=== PATIENT | male | born 1940 | race Caucasian/White ===

== ENCOUNTER 2024-12-05 12:29 | Outpatient (OUT) | payer MEDICARE, SELFPAY ==
--- OUTSIDE RECORDS SUMMARY | 2024-12-03 05:34 | XMS_ITS | Continuity of Care Document ---
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 Office Manager Name Role Phone Amadeo Landis MD Primary Care Provider [phone] Amadeo Landis MD Attending Provider Jalil Harding DO Attending Provider Joseph Graham MD Attending Provider Joseph Graham MD Other Provider [phone] Jeremy Marley APRN Attending Provider Care Teams Patient Care Team Team Status: Active Member Role Status Donna Landis MD Primary Care Provider Active Visit Care Team Team Status: Inactive Member Role Status Donna Landis MD Primary Care Provider Active Start: September 16, 2024 End: September 16, 2024 Amadeo Landis MD Attending Provider Active Start: September 16, 2024 End: September 16, 2024 Visit Care Team Team Status: Inactive Member Role Status Donna Landis MD Primary Care Provider Active Start: September 23, 2024 End: September 23, 2024 Jalil Harding DO Attending Provider Active St art: September 23, 2024 End: September 23, 2024 Visit Care Team Team Status: Active Member Role Status Donna Landis MD Primary Care Provider Active Start: October 07, 2024 Joseph Graham MD Attending Provider Active S tart: October 07, 2024 Joseph Graham MD Other Provider Active Start : October 07, 2024 Visit Care Team Team Status: Inactive Member Role Status Donna Landis MD Primary Care Provider Active Start: October 09, 2024 End: October 09, 2024 Amadeo Landis MD Attending Provider Active Start: October 09, 2024 End: October 09, 2024 Visit Care Team Team Status: Inactive Member Role Status Donna Landis MD Primary Care Provider Active Start: October 24, 2024 End: October 24, 2024 Jeremy Marley APRN Attending Provider Active Start: October 24, 2024 End: October 24, 2024 Visit Care Team Team Status: Inactive Member Role Status Donna Landis MD Primary Care Provider Active Start: October 28, 2024 End: October 28, 2024 Jalil Harding , Attending Provider Active St art: October 28, 2024 End: October 28, 2024 Visit Care Team Team Status: Inactive Member Role Status Donna Landis MD Primary Care Provider Active Start: October 28, 2024 End: October 28, 2024 Jalil Harding , Attending Provider Active St art: October 28, 2024 End: October 28, 2024 Visit Care Team Team Status: Inactive Member Role Status Donna Landis MD Primary Care Provider Active Start: November 07, 2024 End: November 07, 2024 Jalil Harding DO Attending Provider Active St art: November 07, 2024 End: November 07, 2024 Visit Care Team Team Status: Inactive Member Role Status Donna Landis MD Primary Care Provider Active Start: November 13, 2024 End: November 13, 2024 Jalil Harding DO Attending Provider Active St art: November 13, 2024 End: November 13, 2024 Visit Care Team Team Status: Inactive Member Role Status Donna Landis MD Primary Care Provider Active Start: November 18, 2024 End: November 18, 2024 Jalil Harding DO Attending Provider Active St art: November 18, 2024 End: November 18, 2024 Visit Care Team Team Status: Inactive Member Role Status Donna Landis MD Primary Care Provider Active Start: November 18, 2024 End: November 18, 2024 Jalil Harding DO Attending Provider Active St art: November 18, 2024 End: November 18, 2024 Patient Care Team Team Status: Inactive Member Role Status Donna Landis MD Primary Care Provider Active Start: December 03, 2024 End: December 03, 2024 Jeremy Marley APRN Attending Provider Active Start: December 03, 2024 End: December 03, 2024 [...] 2024 1:25 pm Encounter for subsequent [facility] wellness visit (AWV) in Medicare patient September [...] 2024 9:14am GERD (gastroesophageal reflux disease) S epmber 2024 2:08pm Primary osteoarthritis, right shoulder S eptember 2024 9:29am Right rotator cuff tear October 28 9:29am Status post reverse arthroplasty of shou lder October 28, 2024 9:29am Acromial fracture November 18, 2024 9:11am Primary osteoarthritis, right shoulder S eptember 2024 9:11am Right rotator cuff tear Dennise 29th, 2025 9:11am Status post reverse arthroplasty of adrián lder November 18, 2024 9:11am GERD (gastroesophageal reflux disease) O ctober 2024 9:14am Allergies, Adverse Reactions, Alerts Allergen Type Severity Reaction Last Updated Verified Status Penicillins Allergy Unknown Hives December 03, 2024 9:17am Axel s Active Social History Smoking Status Status Start Date End Date Date of Observa tion Ex-smoker (finding) September 202024 11:50am Observation Status Observation Response Date of Response Legal Sex Male (finding) Sex Assigned At Male 1940 Family History Relationship Condition Age at Onset Recorded Date/T channing father Unknown Cerebrovascular accident (CVA) Unknown brother Heart disease Unknown son Malignant neoplasm of colon Unknown mother Unknown Problems Active Problems Medical Problem Onset Date Status Comments History of tobacco abuse Unknown Active Right carpal tunnel syndrome Unknown Active Encounter for subsequent [facility] wellness visit (AWV) in Medicare patient Unknown Active Trigger finger, right ring finger Unknown Active Primary osteoarthritis, right shoulder Unknown Ac tive Left carpal tunnel syndrome Unknown Active BRANDON on CPAP Unknown Active Impaired mobility and activities of daily living Unkno wn Active Acromial fracture Unknown Active Right rotator cuff tear Unknown Active Shortness of breath Unknown Active Dysphasia Unknown Active Cyst Unknown Active Dry skin Unknown Active Acute bronchitis and bronchiolitis Unknown Active Dyslipidemia Unknown Active Insomnia, psychophysiological Unknown Active Neuropathy of right ulnar nerve at wrist Unknown Active Depression Unknown Active Status post reverse arthroplasty of shoulder Unknown Active Abnormal chest x-ray Unknown Active Infection of prosthetic left knee joint Unknown A ctive Hydrocele in adult Unknown Active Bilateral hand pain Unknown Active Pleural plaque due to asbestos exposure Unknown A ctive Impingement of right shoulder Unknown Active Cyst of testis Unknown Active BMI 36.0-36.9,adult Unknown Active Right shoulder pain Unknown Active Ganglion cyst of volar aspect of right wrist Unknown Active Right wrist pain Unknown Active Hydrocele, left Unknown Active GERD (gastroesophageal reflux disease) Unknown Ac tive History of asbestos exposure Unknown Active HTN (hypertension) Unknown Active Obesity Unknown Active 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 Unknown Active Excessive daytime sleepiness Unknown Active Inactive/Resolved Problems Medical Problem Onset Date Status Comments Postoperative pain of extremity Unknown Resolved Cubital tunnel syndrome on right Unknown Resolved Carpal tunnel syndrome Unknown Resolved with surgery on right 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 Unknown Resolved Left leg pain Unknown Resolved Postoperative pain Unknown Resolved S/P right colectomy Unknown Resolved Medications Medication Status Dose Units Route Directions Qty Days St art Date Stop Date End Date Instructions Adherence Furosemide 20 mg tablet Discont inued 20 MG PO Every morning 90 90 Decemb er 2023 5:51pm Sepus t 2024 8:55a m Oxycodone 5 mg tablet Discont inued 5 MG PO Q6H as needed for Pain 28 7 July 30, 2024 September 16, 2024 1:42p m DO NOT RECONCILE UNTIL DOS 07/31/24 TO BE USED POST OP Docusate Sodium (Colace) 100 mg capsule Discont inued 100 MG PO Twice daily as needed for Constipatio n 20 10 July 30, 2024 12:00a m 2024 8:55a m DO NOT RECONCILE UNTIL DOS 07/31/24 TO BE USED POST OP Acetaminoph en 500 mg tablet Discont inued 500 MG PO Q6H as needed for Pain July 30, 2024 12:00a m 2024 8:55a m DO NOT RECONCILE UNTIL DOS 07/31/24 TO BE USED POST OP Polyethylen e Glycol 3350 (Miralax) 17 gram powder in packet Discont inued 17 GM PO daily 14 14 July 30, 2024 12:00a m 2024 8:56a m 1 packet mixed with 8 ounces of fluid. DO NOT RECONCILE UNTIL DOS 07/31/24 TO BE USED POST OP Meloxicam 15 mg tablet Discont inued 15 MG PO daily 14 14 July 30, 2024 12:00a m 2024 8:56a m DO NOT RECONCILE UNTIL DOS 07/31/24 TO BE USED POST OP Doxycycline Hyclate 100 mg capsule Discont inued 100 MG PO Twice daily 70 35 July 30, 2024 12:00a m August 12, 2024 9:27a m DO NOT RECONCILE UNTIL DOS 07/31/24 TO BE USED POST OP Atorvastati n 40 mg Tablet Discont inued 20 MG PO Daily at bedtime 2020 1:00am Febru hany2022 10:17 am Sertraline 100 mg Tablet Discont inued 100 MG PO Daily at bedtime 2020 1:00am 2022 10:17 am Amlodipine 10 mg Tablet Discont inued 10 MG PO Every morning 2020 1:00am 2022 10:17 am Naproxen Sodium (Aleve) 220 mg Tablet Discont inued 440 MG PO Every morning as needed for Pain 2020 1:00am 2022 2:57p m Omeprazole 20 mg Tablet,Ana Lilia yed Release (Dr/Ec) Discont inued 20 MG PO Every morning 2020 1:00am 2022 10:17 am Multivitami n-Iron-Foli c Acid (Sentry) 18-400 mg-mcg Tablet Discont inued 1 TAB PO Every morning 2020 1:00am 2022 10:17 am Vancomycin - Pharmacy Dosing Discont inued 1 EACH IV Once as needed for pharmacy dosing 2022 4:42pm 2022 10:17 am Atorvastati n 20 mg Tablet Discont inued 20 MG PO Daily at bedtime 30 30 2022 1:00am July 12, 2022 11:09 am Melatonin 3 mg Tablet Discont inued 3 MG PO Daily at bedtime as needed for Insomnia 100 30 2022 1:00am August 08, 2022 10:12 am Acetaminoph en 500 mg Tablet Discont inued 1000 MG PO Every 8 hours 180 30 2022 1:00am June 14, 2022 3:42p m Amlodipine 10 mg Tablet Discont inued 10 MG PO Every morning 30 30 2022 1:00am June 14, 2022 3:42p m Omeprazole 20 mg Capsule,Del ayed Release(Dr/ Ec) Discont inued 20 MG PO Daily 30 30 2022 1:00am June 14, 2022 3:42p m Oxycodone 5 mg Tablet Discont inued 5 MG PO Every 4 hours as needed for Pain Scale 6 - 10 21 7 2022August 08, 2022 10:12 am Calcium Carbonate-V itamin D3 (Oyster Shell Calcium-Vit D3) 500 mg-5 mcg (200 unit) Tablet Discont inued 1 TAB PO Twice daily 60 30 2022 1:00am July 12, 2022 11:07 am Multivitami n With Folic Acid (Thera) 400 mcg Tablet Discont inued 1 TAB PO Daily 30 30 2022 1:00am July 27, 2022 4:08p m Fluconazole 100 mg Tablet Discont inued 100 MG PO Every morning 5 5 2022 1:00am June 14, 2022 3:39p m Sennosides- Docusate Sodium 8.6-50 mg Tablet Discont inued 2 TAB PO Daily 60 30 2022 1:00am June 14, 2022 3:42p m Sertraline 100 mg Tablet Discont inued 100 MG PO Daily at bedtime 30 30 2022 1:00am June 14, 2022 3:42p m Diphenhydra mine Hcl 25 mg Capsule Discont inued 25 MG PO Q8H as needed for Itching 90 30 2022 1:00am July 12, 2022 11:09 am Carbamide Peroxide (Ear Drops (Carbamide Peroxide)) 6.5 % Drops Discont inued 5 DROPS EAR-EFFIE TH Daily 1 30 2022 1:00am June 14, 2022 3:42p m Nystatin (Nystop) 100,000 unit/gram Powder Discont inued 1 APPLIC TOPICA L Three times daily 1 14 2022 1:00am June 14, 2022 3:40p m Hydroxyzine Pamoate 25 mg Capsule Discont inued 25 MG PO Q6H as needed for itching/spa sms 60 30 2022 1:00am August 08, 2022 10:12 am Sodium Chloride 0.9 % (Flush) (Bd Posiflush Normal Saline 0.9) Syringe Discont inued 10 ML IV-PUS H Every shift 0 2022 1:00am June 14, 2022 3:41p m Heparin, Porcine (Pf) (Heparin Lockflush(P orcine)(Pf) ) 100 unit/mL Syringe Discont inued 500 UNIT IV-PUS H Every shift 0 2022 1:00am June 14, 2022 3:39p m Vancomycin - Pharmacy Dosing Discont inued 1 ea IV PRN as needed 0 2022 1:00am June 14, 2022 3:42p m Vancomycin 1,000 mg Recon Soln Discont inued 1 GM IV Q12H 0 2022 1:00am June 14, 2022 3:42p m Rivaroxaban (Xarelto) 10 mg tablet Discont inued 10 MG PO Daily 35 35 2022 1:00am June 14, 2022 3:41p m Sennosides- Docusate Sodium 8.6-50 mg tablet Discont inued 2 TAB PO Daily as needed for Constipatio n June 14, 2022 3:41pm July 12, 2022 11:07 am Sertraline 100 mg tablet Discont inued 100 MG PO Daily at bedtime June 14, 2022 3:41pm August 08, 2022 10:12 am Acetaminoph en 500 mg tablet Discont inued 1000 MG PO Every 8 hours June 14, 2022 3:41pm August 08, 2022 10:12 am Amlodipine 10 mg tablet Discont inued 10 MG PO Every morning June 14, 2022 3:41pm August 08, 2022 10:12 am Carbamide Peroxide (Ear Drops (Carbamide Peroxide)) 6.5 % drops Discont inued 5 DROPS EAR-EFFIE TH Daily as needed for Ear Wax June 14, 2022 3:41pm July 12, 2022 11:08 am Omeprazole 20 mg capsule,del ayed release(DR/ EC) Discont inued 20 MG PO Every morning June 14, 2022 3:41pm August 08, 2022 10:12 am Ascorbic Acid (Vitamin C) (Vitamin C) 500 mg Tablet Discont inued 500 MG PO Twice daily with meals July 12, 2022 12:00a m August 08, 2022 10:12 am Ferrous Sulfate (Iron) 325 mg (65 mg iron) Tablet Discont inued 325 MG PO Every morning July 12, 2022 12:00a m August 08, 2022 10:12 am Atorvastati n 20 mg tablet Discont inued 40 MG PO Daily at bedtime July 12, 2022 11:07a m August 08, 2022 10:12 am Prednisone 10 mg Tablet Discont inued 10 MG PO Daily July 27, 2022 12:00a m July 27, 2022 4:08p m Polyethylen e Glycol 3350 (Healthylax ) 17 gram Powder In Packet Discont inued 17 GM PO Daily as needed for Constipatio n July 27, 2022 12:00a m August 08, 2022 10:12 am Sennosides- Docusate Sodium 8.6-50 mg Tablet Discont inued 2 TAB PO Daily July 27, 2022 12:00a m July 27, 2022 4:08p m Tramadol 50 mg Tablet Discont inued 50 MG PO Q4H as needed for Pain Scale 1 - 5 July 27, 2022 12:00a m July 27, 2022 4:09p m Ondansetron 4 mg Tablet,Disi ntegrating Discont inued 8 MG PO Three times daily as needed for Nausea July 27, 2022 12:00a m August 08, 2022 10:12 am Doxycycline Hyclate 100 mg Tablet Discont inued 100 MG PO Twice daily July 27, 2022 12:00a m August 08, 2022 10:12 am Rivaroxaban (Xarelto) 10 mg Tablet Discont inued 10 MG PO Daily July 27, 2022 12:00a m July 27, 2022 4:08p m Prednisone 10 mg tablet Discont inued 10 MG PO Every morning July 27, 2022 4:08pm August 08, 2022 10:12 am Sennosides- Docusate Sodium 8.6-50 mg tablet Discont inued 2 TAB PO Every morning July 27, 2022 4:08pm August 08, 2022 10:12 am Rivaroxaban (Xarelto) 10 mg tablet Discont inued 10 MG PO Every morning July 27, 2022 4:08pm August 05, 2022 2:29p m Multivitami n With Folic Acid (Thera) 400 mcg tablet Discont inued 1 TAB PO Every morning July 27, 2022 4:08pm August 08, 2022 10:12 am Rivaroxaban (Xarelto) 10 mg tablet Discont inued 10 MG PO Every morning 14 14 August 05 2023 2:29pm Octob er 2022 11:45 am Atorvastati n 40 mg Tablet Active 40 MG PO Daily at bedtime August 08, 2022 12:00a m Complies with drug therapy Melatonin 3 mg Tablet Discont inued 3 MG PO Daily at bedtime as needed for Insomnia 30 August 08, 2022 12:00a m June 25, 2024 11:45 am Amlodipine 5 mg Tablet Discont inued 5 MG PO Every morning August 08, 2022 12:00a m Octob er 2022 11:44 am Ascorbic Acid (Vitamin C) (Vitamin C) 500 mg Tablet Discont inued 500 MG PO Twice daily with meals 60 August 08, 2022 12:00a m Octob er 2022 11:44 am Pantoprazol e 40 mg Tablet,Ana Lilia yed Release (Dr/Ec) Discont inued 40 MG PO Every morning August 08, 2022 12:00a m Octob er 2022 11:45 am Oxycodone 5 mg Tablet Discont inued 5 MG PO Q8H as needed for Pain Scale 6 - 10 20 7 August 08, 2022 Octob er 2022 11:43 am Ferrous Sulfate 324 mg (65 mg iron) Tablet,Ana Lilia yed Release (Dr/Ec) Discont inued 324 MG PO Every morning August 08, 2022 12:00a m June 25, 2024 11:45 am Multivitami n With Folic Acid (Thera) 400 mcg Tablet Discont inued 1 TAB PO Every morning August 08, 2022 12:00a m Brayden thony 2023 3:06p m Sennosides- Docusate Sodium 8.6-50 mg Tablet Discont inued 2 TAB PO Every morning 60 August 08, 2022 12:00a m Octob er 2022 11:45 am Sertraline 100 mg Tablet Active 100 MG PO Daily at bedtime August 08, 2022 12:00a m Complies with drug therapy Acetaminoph en 500 mg Tablet Discont inued 500 MG PO Q4H as needed for Pain 180 August 08, 2022 12:00a m Octob er 2022 11:44 am Hydroxyzine Pamoate 25 mg Capsule Discont inued 25 MG PO Q6H as needed for Spasms 30 7 August 08, 2022 12:00a m Octob er 2022 11:45 am Naproxen Sodium (Aleve) 220 mg Tablet Discont inued 440 MG PO Twice daily as needed for Pain Octobe r 2022 12:00a m May 17, 2023 2:19p m Amlodipine 5 mg tablet Discont inued 5 MG PO Every morning Octobe r 2022 11:43a m July 07, 2023 9:33a m Acetaminoph en 500 mg tablet Discont inued 1000 MG PO Q6H as needed for Pain [facility] 11:43a m Septe [facility] 2023 3:03p m Ascorbic Acid (Vitamin C) (Vitamin C) 500 mg tablet [facility]cont inued [facility] 11:43[facility] m July 17, 2024 9:16a m Omeprazole 20 mg Tablet,Ana Lilia yed Release (Dr/Ec) Discont inued 20 MG PO Every morning [facility] 2022 12:00a m Septe [facility] 2024 2:25p m Sennosides- Docusate Sodium 8.6-50 mg tablet Discont inued 2 TAB PO Every morning as needed for Constipatio n [facility] 2022 11:45a m Septe [facility] 2023 3:08p m Hydrocodone -Acetaminop hen 5-325 mg tablet Discont inued 1 - 2 TAB PO EVERY 4-6 HOURS as needed for pain 30 4 [facility] 2022May 17, 2023 2:19p m Doxycycline Hyclate 100 mg tablet Discont inued 100 MG PO Twice daily 10 [facility] 12:[facility] m May 17, 2023 2:19p m Amlodipine 5 mg tablet Active 5 MG PO Every morning July 07, 2023 9:32am Complies with drug therapy Omeprazole 20 mg tablet,ana lilia yed release (DR/EC) Discont inued 20 MG PO Twice daily [facility]24 2:24pm Septe [facility] 2024 2:56p m Naproxen Sodium (Aleve) 220 mg tablet Active 440 MG PO Every morning Novemb er 2023 1:00am Complies with drug therapy Docusate Sodium (Stool Softener) 50 mg capsule Discont inued 50 MG PO Daily at bedtime Novemb er 2023 1:00am June 25, 2024 11:45 am Lactobacill us Combination No.9 (Adult 50 Plus Probiotic) 4 billion cell capsule Active 4000 MMU CELLS PO Every morning Novemb er 2023 1:00am administer with a meal Complies with drug therapy Hydrocodone -Acetaminop hen 5-325 mg tablet Discont inued 1 - 2 TAB PO EVERY 4-6 HOURS as needed for pain 20 3 Novemb er 2023June 25, 2024 11:45 am Doxycycline Hyclate 100 mg tablet Discont inued 100 MG PO Twice daily 10 5 Novemb er 2023 1:00am Novem lorena 2023 12:01 pm Polyethylen e Glycol 3350 (Clearlax) 17 gram/dose powder Active 17 GM PO Daily as needed for constipatio n September 23, 2024 12:00a m Complies with drug therapy Melatonin 3 mg Tablet Discont inued 3 MG PO Daily at bedtime as needed for Insomnia 2022 1:00am Febru 2022 10:17 am Vancomycin 750 mg Recon Soln Discont inued 0.75 GM IV Q12H 2022 1:00am 2022 10:17 am Vancomycin - Pharmacy Dosing Discont inued 1 ea IV Once as needed 2022 1:00am 2022 4:42p m Polyethylen e Glycol 3350 (Miralax) 17 gram Powder In Packet Discont inued 17 GM PO Daily as needed for Constipatio n 2022 1:00am Febru hany2022 10:17 am Sennosides- Docusate Sodium 8.6-50 mg Tablet Discont inued 2 TAB PO Daily 2022 1:00am Febru hany2022 10:17 am Tramadol 50 mg Tablet Discont inued 50 MG PO Q4H as needed for Pain Scale 1 - 5 2022 1:00am Febru 2022 10:17 am Acetaminoph en 500 mg Tablet Discont inued 1000 MG PO Q8H 2022 1:00am Febru 2022 10:17 am Ondansetron 4 mg Tablet,Disi ntegrating Discont inued 8 MG PO Three times daily as needed for Nausea 2022 1:00am Febru 2022 10:17 am Oxycodone 5 mg Tablet Discont inued 5 MG PO Every 4 hours as needed for Pain Scale 6 - 10 2022 10:17 am Calcium Carbonate-V itamin D3 (Oyster Shell Calcium-Vit D3) 500 mg-5 mcg (200 unit) Tablet Discont inued 1 TAB PO Twice daily 2022 1:00am Febr2022 10:17 am Rivaroxaban (Xarelto) 10 mg Tablet Discont inued 10 MG PO Daily 2022 1:00am u 2022 10:17 am Acetaminoph en (Non-Aspiri n) 325 mg tablet Discont inued 650 MG PO Every 6 hours as needed for fever or pain 2023 12:00a m June 25, 2024 11:24 am Naproxen (Naprosyn) 500 mg tablet Discont inued 500 MG PO Daily as needed for pain 2023 12:00a m 2023 11:18 am Tamsulosin 0.4 mg capsule Discont inued 0.4 MG PO Every morning 2023 12:00a m June 25, 2024 11:24 am Aspirin (Aspirin Childrens) 81 mg tablet,chew able Discont inued 81 MG PO Daily at bedtime 2023 12:00a m Febr 2024 10:43 am Diclofenac Sodium (Voltaren Arthritis Pain) 1 % gel Discont inued 0 TOPICA L Twice daily as needed for arthritis 2023 12:00a m Novem 2023 11:18 am topically twice daily PRN; Nitroglycer in 0.4 mg tablet, sublingual Active 0.4 MG SUBLIN GUAL Q5M as needed for chest pain 2023 12:00a m until response; do not exceed 3 doses per event Complies with drug therapy Tamsulosin 0.4 mg capsule Active 0.4 MG PO Twice daily June 25, 2024 11:22a m Complies with drug therapy Hydroxyzine Pamoate 25 mg capsule Discont inued MG PO June 09, 2023 12:00a m [facility]2023 3:06p m FreeTextSi capsule at bedtime as needed Orally prn; Note: Source Status: Taking; Provider: Irma Sequeira ( ) Prednisone 5 mg tablet Discont inued 5 MG PO daily 30 May 17, 2023 12:00a m Augus t 2023 8:19a m Take 5 pills by mouth x2 days, take 4 pills by mouth x2 days, take 3 pills by mouth x2 days, take 2 pills by mouth x2 days, take 1 pill by mouth x2 days. Diclofenac Sodium (Voltaren Arthritis Pain) 1 % gel Discont inued 0 TOPICA L Twice daily May 17, 2023 12:[address] [facility] 2023 3:09p m apply 1-2 grams to affected area twice daily Multivitami n-Minerals- Lutein tablet Active 1 TAB PO Daily July 07, 2023 12:00a m Complies with drug therapy Doxycycline Hyclate 100 mg capsule Discont inued 100 MG PO Twice daily er 2023 1:00am Febru 2024 10:43 am Cpap (Continuous Positive Airway Pressure) unit Discont inued 0 .Route 2024 1:00am u 2024 10:46 am As directed Cpap (Continuous Positive Airway Pressure) unit Active 0 .Route 2024 10:46a m As directed [facility]ME [facility] Ferrous Sulfate 325 mg (65 mg iron) tablet Discont inued 325 MG PO Daily 2024 12:00a m Octob er 2024 9:18a m Furosemide 20 mg tablet Discont inued 20 MG PO Daily 2024 12:00a m Octob er 2024 9:18a m Dutasteride 0.5 mg capsule Active 0.5 MG PO Daily 2024 12:00a m Complies with drug therapy Famotidine 40 mg tablet Active 40 MG PO Daily at bedtime as needed for heartburn/a bd pain 2024 12:00a m Complies with drug therapy Omeprazole 40 mg capsule,del ayed release(DR/ EC) Active 40 MG PO Daily 2024 12:00a m Complies with drug therapy Doxycycline Hyclate 100 mg capsule Discont inued MG PO October 20, 2023 12:00a m Septe mber 2023 3:05p m Furosemide 20 mg tablet Discont inued 20 MG PO Every morning October 20, 2023 12:00a m Dece lorena 2023 5:52p m Acetaminoph en (Tylenol Extra Strength) 500 mg tablet Active 500 MG PO Every 6 hours as needed for pain June 25, 2024 12:00a m Complies with drug therapy Aspirin (Adult Low Dose Aspirin) 81 mg tablet,ana lilia yed release (DR/EC) Discont inued 81 MG PO Daily June 25, 2024 12:00a m July 02, 2024 8:36a m Oxycodone 5 mg tablet Discont inued 5 MG PO Every 8 hours as needed June 25, 2024 12:00a m July 02, 2024 8:40a m Ciprofloxac in Hcl 500 mg tablet Discont inued MG PO 2024 12:00a m Octob er 2024 9:18a m Prednisone 5 mg tablet Discont inued 5 MG PO daily 2024 12:00a m Octob er 2024 9:19a m Take 4 pills by mouth x2 days, take 3 pills by mouth x2 days, take 2 pills by mouth x2 days, take 1 pill by mouth x1 day. IV Medications Medication Contents Directions Start Date Gentamicin 455 mg Gentamicin, Sodium Chloride 0.9% 100 ml [0.9% Sodium Chloride 100 ml] 222.75 mls/hr IV Q36H March 10, 2022 1:00am Immunizations Immunization Event Date Not Given Reason Dose Number Prior Authorization Technician Lot Number Vaccine Information Statement (VIS) Detail Administration Location COVID-19 mRNA, Comirnatjose d (infibond) May 15, 2020 COVID-19 mRNA, Comirnaty (infibond) June 19, 2020 COVID-19 ([employer]) 12Y and older March 16, 2023 COVID-19 ([employer]) 12Y and older April 23, 2024 Fluzone TIV High-Dose 65YR+ December 01, 2019 Fluzone TIV High-Dose 65YR+ January 12, 2021 Fluzone TIV High-Dose 65YR+ December 13, 2021 Fluzone TIV High-Dose 65YR+ April 23, 2024 influenza, unspecified formulation January 12, 2021 influenza, unspecified formulation December 13, 2021 Pneumococcal Conjugate Vaccine, 13 valent November 12, 2014 Pneumonia Vaccine, Unspecified December 04, 2003 Pneumococcal Polysacc. Vaccine, 23 valent February 20, 2017 Pneumococcal Polysacc. Vaccine, 23 valent April 07, 2017 Quadrivalent Influenza November 17, 2022 Tetanus, Diphtheria, Pertussis (Tdap) February 26, 2019 Medical Equipment Device Date Implanted Date Explanted Device Deta ils Orthopaedic bone screw, non-bioabsorbable, non-sterile July 31, 2024 JOEL: ()[id number] Issuing Agency: [facility] Device Id: [id number] Orthopaedic bone screw, non-bioabsorbable, non-sterile July 31, 2024 JOEL: ()[id number] Issuing Agency: [facility] Device Id: [id number] Orthopaedic bone screw, non-bioabsorbable, non-sterile July 31, 2024 JOEL: ()[id number] Issuing Agency: [facility] Device Id: [id number] Orthopaedic bone screw, non-bioabsorbable, non-sterile July 31, 2024 JOEL: ()[id number] Issuing Agency: [facility] Device Id: [id number] Polyethylene reverse shoulder prosthesis cup July 31, 2024 JOEL: ()[id number] Issuing Agency: [facility] Device Id: [id number] Expiration Date: 2027-07-15 Serial Number: [id number] Coated shoulder humeral stem prosthesis July 31, 2024 JOEL: ()[id number] Issuing Agency: [facility] Device Id: [id number] Expiration Date: 2028-06-18 Serial Number: [id number] Reverse shoulder prosthesis head July 31, 2024 JOEL: ()[id number] Issuing Agency: [facility] Device Id: [id number] Expiration Date: 2027-12-13 Orthopaedic bone screw, non-bioabsorbable, non-sterile July 31, 2024 JOEL: ()[id number] Issuing Agency: [facility] Device Id: [id number] Reverse shoulder prosthesis base plate July 31, 2024 JOEL: ()[id number] Issuing Agency: [facility] Device Id: [id number] Expiration Date: 2029-04-16 Serial Number: [id number] Nerve guide, bioabsorbable, animal-derived December 05, 2022 JOEL: [id number] Orthopaedic cement, non-medicated March 08, 2022 JOEL: ()[id number] Issuing Agency: [facility] Device Id: [id number] Expiration Date: 2024-06-19 Lot Number: [id number] Orthopaedic cement, non-medicated March 08, 2022 JOEL: ()[id number] [id number])[id number] Issuing Agency: [facility] Device Id: [id number] Expiration Date: 2024-06-19 Lot Number: [id number] Orthopaedic cement, non-medicated March 08, 2022 JOEL: ()[id number] Issuing Agency: [facility] Device Id: [id number] Expiration Date: 2024-06-19 Lot Number: [id number] Orthopaedic cement, non-medicated March 08, 2022 JOEL: ()[id number] [id number])[id number] Issuing Agency: [facility] Device Id: [id number] Expiration Date: 2024-06-19 Lot Number: [id number] Orthopaedic cement, non-medicated July 26, 2022 JOEL: ()[id number])[id number] 30(10)[id number] Issuing Agency: [facility] Device Id: [id number] Expiration Date: 2024-11-19 Lot Number: [id number] Orthopaedic cement, non-medicated July 26, 2022 JOEL: ()[id number] [id number])[id number] Issuing Agency: [facility] Device Id: [id number] Expiration Date: 2024-11-19 Lot Number: [id number] Orthopaedic cement, non-medicated July 26, 2022 JOEL: ()[id number] 30(10)[id number] Issuing Agency: [facility] Device Id: [id number] Expiration Date: 2024-11-19 Lot Number: [id number] Knee femur stem prosthesis July 26, 2022 JOEL: ()[id number] Issuing Agency: [facility] Device Id: [id number] Expiration Date: 2028-11-19 Lot Number: [id number] Knee femur stem prosthesis July 26, 2022 JOEL: ()[id number] Issuing Agency: [facility] Device Id: [id number] Expiration Date: 2028-11-19 Lot Number: [id number] Tibial insert July 26, 2022 JOEL: ()[id number])[id number] Issuing Agency: [facility] Device Id: [id number] Expiration Date: 2024-07-20 Lot Number: [id number] Knee arthroplasty wedge July 26, 2022 UD I: ()[id number] Issuing Agency: [facility] Device Id: [id number] Expiration Date: 2029-08-19 Lot Number: [id number] Knee arthroplasty wedge July 26, 2022 UD I: ()[id number] Issuing Agency: [facility] Device Id: [id number] Expiration Date: 2029-10-06 Lot Number: [id number] Knee arthroplasty wedge July 26, 2022 UD I: ()[id number])[id number] Issuing Agency: [facility] Device Id: [id number] Expiration Date: 2029-03-22 Lot Number: [id number] Knee arthroplasty wedge July 26, 2022 UD I: ()[id number] Issuing Agency: [facility] Device Id: [id number] Expiration Date: 2029-03-22 Lot Number: [id number] Knee arthroplasty wedge July 26, 2022 UD I: ()[id number] Issuing Agency: [facility] Device Id: [id number] Expiration Date: 2030-07-10 Lot Number: [id number] Knee arthroplasty wedge July 26, 2022 UD I: ()[id number] Issuing Agency: [facility] Device Id: [id number] Expiration Date: 2030-09-20 Lot Number: [id number] Knee arthroplasty wedge July 26, 2022 UD I: ()[id number])[id number] Issuing Agency: [facility] Device Id: [id number] Expiration Date: 2030-05-28 Lot Number: [id number] Knee arthroplasty wedge July 26, 2022 UD I: ()[id number] Issuing Agency: [facility] Device Id: [id number] Expiration Date: 2030-01-02 Lot Number: [id number] Uncoated knee femur prosthesis, metallic July 26, 2022 JOEL: ()[id number])[id number] Issuing Agency: [facility] Device Id: [id number] Expiration Date: 2030-04-26 Lot Number: [id number] Uncoated knee tibia prosthesis, metallic July 26, 2022 JOEL: ()[id number] Issuing Agency: [facility] Device Id: [id number] Expiration Date: 2031-08-03 Lot Number: [id number] Tendon/ligament bone anchor, non-bioabsorbable July 26, 2022 JOEL: ()[id number] Issuing Agency: [facility] Device Id: [id number] Expiration Date: 2025-10-20 Lot Number: [id number] Tendon/ligament bone anchor, non-bioabsorbable July 26, 2022 JOEL: ()[id number] [id number] Issuing Agency: [facility] Device Id: [id number] Expiration Date: 2026-11-19 Lot Number: [id number] Uncoated knee femur prosthesis March 08, 2022 July 26, 2022 JOEL: ()[id number] Issuing Agency: [facility] Device Id: [id number] Expiration Date: 2030-05-17 Lot Number: [id number] Tibial insert March 08, 2022 July 26, 2022 JOEL: ()[id number] [id number])[id number] Issuing Agency: [facility] Device Id: [id number] Expiration Date: 2024-07-20 Lot Number: [id number] Procedures Procedure Date Performed Status XR shoulder [...] 1:23pm November 07, 2024 3:54pm 7.6 10*3/uL 4.1-10.5 [facility] [id number] [address] [facility] [address] Uncorrect ed WBC Count November 07, 2024 1:23pm November 07, 2024 3:54pm 7.6 10*3/uL 4.1-10.5 [facility] [id number] [address] [facility] [address] Red Blood Count November 07, 2024 1:23pm November 07, 2024 3:54pm 5.10 10*6/uL 3.90-5.60 [facility] [id number] [address] [facility] [address] Hemoglobi n November 07, 2024 1:23pm November 07, 2024 3:54pm 15.1 g/dL 13.0-17.0 [facility] [id number] [address] [facility] [address] Hematocri t November 07, 2024 1:23pm November 07, 2024 3:54pm 46.3 % 38.8-50.0 [facility] [id number] [address] [facility] [address] Mean Corpuscul ar Volume November 07, 2024 1:23pm November 07, 2024 3:54pm 90.8 fL 83.5-101 [facility] [id number] [address] [place] [id number] Mean Corpuscul ar Hemoglobi n November 07, 2024 1:23pm November 07, 2024 3:54pm 29.6 pg 27.5-35.2 [facility] [id number] [address] [facility] [address] Mean Corpuscul ar Hemoglobi n Concent November 07, 2024 1:23pm November 07, 2024 3:54pm 32.6 g/dL 32.5-35.6 [facility] [id number] [address] [facility] [address] Red Cell Distribut ion Width November 07, 2024 1:23pm November 07, 2024 3:54pm 15.3 % Above high normal 12.0-14.8 [facility] [id number] [address] [facility] [address] Platelet Count November 07, 2024 1:23pm November 07, 2024 3:54pm 179 10*3/uL 150-450 [facility] [id number] [address] [facility] [address] Mean Platelet Volume November 07, 2024 1:23pm November 07, 2024 3:54pm 8.0 fL 6.6-10.1 [facility] [id number] [address] [facility] [address] Neutrophi ls (%) (Auto) November 07, 2024 1:23pm November 07, 2024 3:54pm 50.5 % . [facility] [id number] [address] [facility] [address] Lymphocyt es (%) (Auto) November 07, 2024 1:23pm November 07, 2024 3:54pm 38.7 % . [facility] [id number] [address] [facility] [address] Monocytes (%) (Auto) November 07, 2024 1:23pm November 07, 2024 3:54pm 9.1 % . [facility] [id number] [address] [facility] [address] Eosinophi ls (%) (Auto) November 07, 2024 1:23pm November 07, 2024 3:54pm 1.2 % . [facility] [id number] [address] [facility] [address] Basophils (%) (Auto) November 07, 2024 1:23pm November 07, 2024 3:54pm 0.5 % . [facility] [id number] [address] [facility] [address] Nucleated RBC Relative Count (auto) November 07, 2024 1:23pm November 07, 2024 3:54pm 0.0 /100{WB C} 0-0.5 [facility] [id number] [address] [facility] [address] Neutrophi ls # (Auto) November 07, 2024 1:23pm November 07, 2024 3:54pm 3.9 10*3/uL 1.8-7.7 [facility] [id number] [address] [place] 1772970 Lymphocyt es # (Auto) November 07, 2024 1:23pm November 07, 2024 3:54pm 3.0 10*3/uL 1.00-4.8 [facility] [id number] [address] [facility] [address] Monocytes # (Auto) November 07, 2024 1:23pm November 07, 2024 3:54pm 0.7 10*3/uL 0.0-0.8 [facility] [id number] [address] [place] 1772970 Eosinophi ls # (Auto) November 07, 2024 1:23pm November 07, 2024 3:54pm 0.1 10*3/uL 0.0-0.45 [facility] [id number] [address] [place] 1772970 Basophils # (Auto) November 07, 2024 1:23pm November 07, 2024 3:54pm 0.0 10*3/uL 0.0-0.2 [facility] [id number] [address] [facility] [address] Erythrocy te Sedimenta tion Rate November 07, 2024 1:23pm November 07, 2024 4:26pm 6 mm/hr 0-19 [facility] [id number] [address] [place], [place] [address] D-Dimer Quantitat michoacano (PE/DVT) November 07, 2024 1:23pm November 07, 2024 4:17pm 690 ng/mL Above high normal 0-243 The reference range for D-dimer is <243 ng/mL D-dimer units.D-dime r results must be used in conjunction with a clinicalpret est probability (PTP) assessment model for deep veinthrombos is (DVT) and pulmonary embolism (PE). Results <230ng/mL d-dimer units can be used as a negative predictor inpatients with low or moderate probability for DVT/PE.Resul ts above the exclusion threshold of 230 ng/ml D-dimerunits for DVT/PE may indicate the need for furtherdiagn ostic testing.D-Di juan daniel can be increased in hospitalized patients due toco-morbid conditions.A hematocrit value greater than 55% may lead to inaccurate results in coagulation testing. Patients having hematocrit values >55% require a special collection tube for coagulation studies. Please contact the laboratory at [phone] for redraw instructions . [facility] [id number] [address] [place] [address] C-Reactiv e Protein, Quantitat michoacano November 07, 2024 1:23pm November 07, 2024 4:05pm 0.5 mg/dL 0.0-0.5 [facility] [id number] [address] [place], [place] [address] Diagnostic Imaging Reports Author Dae Frankel [facility] Authored October 09, 2024 3: 12pm Report Dictated Date/Time Dictated By Status Radiology Report October 09, 2024 3:12pm Dae Frankel II MD completed [facility] [place] [address] Ultrasound Report Signed Patient: Danyel Jung V MR#: [id number] : 1940 Acct:[id number] Age/Sex: 84 / M ADM Date: 5 Loc: Room: Type: [facility] Attending Dr: Amadeo Landis MD Ordering [...] Frankel M.D. 10/09/2024 3:20 PM Dictation Location: [place] [address] Tech: Gayle Nino Transcribed By: [facility] 10/09/24 1520 Dictated By: Dae Frankel II, MD 10/09/24 1512 Signed By: <Electronically signed by Dae Frankel II, MD in OV> 10/09/24 1520 Author Amarjit Ngael [facility] Authored October 28, 2024 1:55pm Report Dictated Date/Time Dictated By Status Radiology Report October 28, 2024 1:55pm Patel Nagel Jr DO completed [facility] [address] [place] [address] XRay Report Signed Patient: Danyel Jung V MR#: [id number] : 1940 Acct:[id number] Age/Sex: 84 / M ADM Date: 5 [place] [facility] [place]: Type: [facility] Attending Dr: Jalil Harding DO Copies to: [...] Impression dictated by: Amarjit Nagel Jr., D.O. 10/28/2024 1:56 PM Dictation Location: [place] [address] Transcribed By: [facility] 10/28/24 1356 Dictated By: Amarjit Nagel Jr, DO 10/28/24 1355 Signed By: <Electronically signed by Amarjit Nagel Jr, DO in OV> 10/28/24 1356 Author Amarjit Nagel [facility] Authored November 18, 2024 4:18pm Report Dictated Date/Time Dictated By Status Radiology Report November 18, 2024 4:18pm Amarjit Nagel Jr DO completed [facility] [address] [place] [address] XRay Report Signed Patient: Danyel Jung V MR#: [id number] : 1940 Acct:[id number] Age/Sex: 84 / M ADM Date: 5 Loc: [facility] Room: Type: [facility] Attending Dr: Jalil Harding DO Copies to: [...] Impression dictated by: Amarjit Nagel Jr., D.OSamanta 11/18/2024 4:19 PM Dictation Location: [place] [address] Transcribed By: [facility] 11/18/24 1619 Dictated By: Amarjit Nagel Jr, DO 11/18/24 1618 Signed By: <Electronically signed by Amarjit Nagel Jr, DO in OV> 11/18/24 1619 Vital Signs Vital Reading Result Reference Range Collection Date/Time Weight 119.74 kg September 16, 2024 1:41pm BP Systolic 134 mm[Hg] 100-140 September 16, 2024 1:41pm BP Diastolic 70 mm[Hg] 60-100 September 16, 2024 1:41pm Height 71 [in_i] October 07 11:50am Weight 115.66 kg October 07 11:50am Heart Rate 60 /min 60-100 October 07 12:44pm Respiratory rate 16 /min 12-September 12:44pm Oxygen saturation by Pulse oximetry 97 % 95-100 October 07, 2024 12 :44pm BP Systolic 153 mm[Hg] 100-140 October 07 12:44pm BP Diastolic 81 mm[Hg] 60-100 October 07 12:44pm Height 71 [in_i] October 24, 2024 2:21pm Weight 117.93 kg October 24, 2024 2:21pm Heart Rate 76 /min 60-100 October 24, 2024 2:21pm BP Systolic 117 mm[Hg] 100-140 October 24, 2024 2:21pm BP Diastolic 66 mm[Hg] 60-100 October 24, 2024 2:21pm BMI (Body Mass Index) 36.2 kg/m2 2024 2:21pm Height 71 [in_i] December 03, 2 025 9:15am Weight 116.57 kg December 03, 2 025 9:15am Heart Rate 71 /min 60-100 December 03, 2 025 9:15am BP Systolic 137 mm[Hg] 100-140 December 03, 2 025 9:15am BP Diastolic 72 mm[Hg] 60-100 December 03, 2 025 9:15am BMI (Body Mass Index) 35.8 kg/m2 Octobe r 2024 9:15am Advance Directives Advance Directive Response Recorded Date/ Time Advance Directives Yes July 01 2:11pm Insurance Providers Guarantor Danyel Jung V Address [address] [facility] [place] [place] [address] Contact Info. Home Phone: Payer Policy Id Subscriber's Name Subscriber Id Effectiv e Date Expiration Date Medicare [id number] Danyel Pachasa V [id number] Medicare Rehab-IP Part A [id number] Danyel Pachasa V [id number] Encounters Encounter Location(s) Arrival/Admit Date Discharge/Depart Date Provider(s) [facility]arted Phys[facility]vi [facility] September 16, 2024 1:25pm September 16, 2024 2:09pm Amadeo Landis MD Departed Physician/Provi emily Office Visit -[facility] September 23, 2024 9:14am September 23, 2024 9:26am Jalil Harding DO Non-patient / Non-visit -[facility] October 07, 2024 11:36am Joseph Graham MD Departed Clinical -Ultrasound [facility] October 09, 2024 7:41am October 09, 2024 7:42am Amadeo Landis MD Departed Physician/Provi emily Office Visit -[facility] October 24, 2024 2:08pm October 24, 2024 2:57pm Jeremy Marley APRN Departed Physician/Provi emily Office Visit -[facility] October 28, 2024 9:29am October 28, 2024 10:53am Jalil Harding DO Departed Clinical -[facility] October 28, 2024 9:42am October 28, 2024 9:43am Jalil Harding DO Departed Clinical -[facility] November 07, 2024 1:22pm November 07, 2024 1:23pm Jalil Harding DO Discharged Recurring -[facility] November 13, 2024 9:00am November 13, 2024 5:00pm Jalil Harding DO Departed Physician/Provi emily Office Visit -[facility] November 18, 2024 9:11am November 18, 2024 10:05am Jalil Harding DO Departed Clinical -[facility] November 18, 2024 9:28am November 18, 2024 9:29am Jalil Harding DO Departed Physician/Provi emily Office Visit -[facility] December 03, 2024 9:14am December 03, 2024 9:33am Jeremy Marley APRN Recent Diagnosis Onset Date Admit Date Depression Unknown September 16, 2024 1:25pm Dysphasia Unknown September 16, 2024 1:25pm Encounter for subsequent [facility] wellness visit (AWV) in Medicare patient [...] 2024 9:29am Right rotator cuff tear [facility] 9:29am Status post reverse arthroplasty of shoulder Unk nown October 28, 2024 9:29am Acromial fracture Unknown October 9:11am Primary osteoarthritis, right shoulder Unknown November 18, 2024 9:11am [facility] Status post reverse arthroplasty of shoulder Unk nown November 18, 2024 9:11am GERD (gastroesophageal reflux disease) Unknown December 03, 2024 9:14am Assessments [facility] September 16, 2024 2:16 pm Patient was verbally informed of the use of an AI-based documentation tool during the encounter. Tool is approved by [facility] and configured for HIPAA-compliant use. No objections voiced. Plan of Treatment Author Amadeo Landis [facility] Authored October 02, 2024 5: 29pm Patient presents with signif icant symptoms including difficulty swallowing, choking on foods, [...] as tolerated post- surgery. Consider referral to completion engineer if patient is interested in dietary guidance. Patient acknowledges issues with weight and difficulty in managing diet. - Plan: Encourage gradual increase in physical activity as tolerated post- surgery. Consider referral to completion engineer if patient is interested in dietary guidance. [...] performed by Dr. Landis. Author Lena Montoya [facility] Authored November 18, 2024 10:03am Images were reviewed in [facility] with the patient and company. Orthopedic hardware [...] weeks with repeat xrays. Author Jeremy Marley [facility] Authored October 24, 2024 4:47pm - Order omeprazole 40 mg macy ly for treatment of GERD. Patient advised to use as needed Pepcid for breakthrough. 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 Anti-reflux precautions discussed: Loss weight Elevate head of bed 4-6 inches when sleeping Avoid eating within 3 hours before bedtime. Maintain upright posture during and after eating. Avoid clothing that is tight in the abdominal area. Minimize narcotics Avoid foods that make symptoms worse (examples include coffee, chocolate, alcohol, peppermint, and fatty foods) . Eat 5-6 small meals throughout the day instead of 2-3 large meals. Do not use tobacco products Minimize alcohol use Avoid lying down for 3 hours after [...] history of bulbar polio. Author Shellie Gaxiola [facility] Authored September 23, 2024 9:2 4am Instructed to continue with formal physical therapy and [...] myself Jalil Harding D.O. Author Jalil Harding [facility] Authored October 28, 2024 1:18pm Images were reviewed in [facility] with the patient. Advised he likely pushed [...] is unavailable Patient Instructions Instruction Admit Date [facility] Esophagitis Discha rge Instructions Know your Meds October 07, 2024 11:36am
--- OUTSIDE RECORDS SUMMARY | 2024-12-04 09:00 | XMS_ITS | Encounter Summary ---
Author Organization [facility] Address [address] [place] [address] Phone Care Team Providers Care Private Banker Name Role Phone Amadeo Landis MD Primary Care Provider [phone] [phone] Reason for Referral * Consultation (Routine) - Authorized Specialty Diagnoses / Procedures Referred By Jennifer t Referred To Contact Cardiology Diagnoses Essential hypertension Procedures Follow Up In Cardiology Hayder Patino DO 703 [facility] 2, [address] [address] Phone: tel: fax: Briana Pretty, TRACK EQUIPMENT OPERATOR-POOL LIFEGUARD 703 [facility] 2, [address] [address] Phone: tel: fax: Referral ID Status Reason Start Date Expiration Date V isits Requested Visits Authorized [id number] Authorized 12/04/2024 12/04/2025 1 1 Reason for Visit * Reason Comments Annual Exam 1 year, coronary art kenia disease * Consultation (Routine) - Authorized Specialty Diagnoses / Procedures Referred By Contac t Referred To Contact Cardiology Diagnoses Coronary artery disease involving kl[place] coronary artery 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[place] heart without angina pectoris Procedures Follow Up In Cardiology Hayder Patino DO [address] [place] [address] 2, [address] [address] Phone: tel: fax: Hayder Patino DO [address] [place] [address] 2, [address] [place] [address] Phone: tel: fax: Referral ID Status Reason Start Date Expiration Date V isits Requested Visits Authorized [id number] Authorized 11/28/2023 11/27/2024 1 1 Encounter Details Date Type Department Care Team (Late st Contact Info) Description 12/04/2024 9:00 AM EDT Office Visit [facility] [address] [phone] Hayder Patino, 703 [facility] 2, [facility] [address] [place] [address] Coronary artery disease involving kl[place] ka[place] coronary artery of [place] heart without angina pectoris; Essential hypertension; Mixed hyperlipidemia; MCCARTHY (dyspnea on exertion); BMI 36.0-36.9,adult; Former tobacco use Discharge Disposition: Home Social History Tobacco Use Types Packs/Day Years Used Date Smoking Tobacco: Former Pipe Smokeless Tobacco: Never Alcohol Use Standard Drinks/Week Comments Yes 0 (1 standard drink = 0.6 oz pur e alcohol) occasionally Sex and Gender Information Value Date Recorded Sex Assigned at Not on file Legal Sex Male 11:38 AM EST Gender Identity Not on file Sexual Orientation Not on file documented as of this encounter Last Filed Vital Signs Vital Sign Reading Time Taken Comments Blood Pressure 136/66 12/04/2024 9:17 AM EDT Pulse 62 12/04/2024 9:17 AM EDT Temperature - - Respiratory Rate - - Oxygen Saturation - - Inhaled Oxygen Concentration - - Weight 119 kg (263 lb) 12/04/2024 9:17 AM EDT Height 180.3 cm (5' 11 ) 12/04/2024 9:17 AM EDT Body Mass Index 36.68 12/04/2024 9:17 AM EDT documented in this encounter Functional Status * BP Answer Date of Assessment Author 136/66 12/04/2024 9:17 AM EDT Cheikh Tierney MA * Pulse Answer Date of Assessment Author 62 12/04/2024 9:17 AM EDT Cheikh Tierney MA * Communicable Disease Screening Question Answer Date of Assessment Author Do you have any of the following new or worsening symptoms? None of these 12/04/2024 9:07 AM EDT JayjayMaye documented as of this encounter Patient Instructions * Patient Instructions* Andreia Ambrose LPN - 12/04/2024 9:00 AM EDT Please bring all medicines, vitamins, and herbal supplements with you when you come to the office. Prescriptions will not be filled unless you are compliant with your follow up appointments or have a follow up appointment scheduled as per instruction of your physician. Refills should be requested at the time of your visit. BMI was above normal measurement. Current weight: 119 kg (263 lb) Weight change since last visit (-) denotes wt loss 13 lbs Weight loss needed to achieve BMI 25: 84.1 Lbs Weight loss needed to achieve BMI 30: 48.4 Lbs Provided instructions on dietary changes. * Attachments The following attachments cannot be sent through Care Everywhere. * Heart Healthy Diet (Mosotho) documented in this encounter Progress Notes * Hayder Patino DO - 12/04/2024 9:00 AM EDT Chief Complaint Patient presents with Annual Exam 1 year, coronary artery disease Subjective Danyel Jung is a 84 y.o. male 84-year-old gentleman returns for annual cardiovascular follow-up and doing well. He denies any angina or hospitalizations or acute coronary events, denies any heart failure or edema. He has minimal coronary disease by previous heart catheterization performed by myself due to abnormal stress testing. He has underlying hypertension hyperlipidemia. Over the past year his ambulatory capacity has declined a bit but he still walking at [facility] still doing physical therapy following right shoulder replacement Recommendations: Follow-up with primary care, nurse practitioner I will see him on a as needed basis Review of Systems Cardiovascular: Positive for dyspnea on exertion. All other systems reviewed and are negative. Vitals: 12/04/24 0917 BP: 136/66 BP Location: Left arm Patient Position: Sitting Pulse: 62 Weight: 119 kg (263 lb) Height: 1.803 m (5' 11 ) Objective Physical Exam Constitutional: Appearance: Normal appearance. HENT: Nose: Nose normal. Neck: Vascular: No carotid bruit. Cardiovascular: Rate and Rhythm: Normal rate. Pulses: Normal pulses. Heart sounds: Normal heart sounds. Pulmonary: Effort: Pulmonary effort is normal. Abdominal: General: Bowel sounds are normal. Palpations: Abdomen is soft. Musculoskeletal: General: Normal range of motion. Cervical back: Normal range of motion. Right lower leg: No edema. Left lower leg: No edema. Skin: General: Skin is warm and dry. Neurological: General: No focal deficit present. Mental Status: He is alert. Psychiatric: Mood and Affect: Mood normal. Behavior: Behavior normal. Thought Content: Thought content normal. Judgment: Judgment normal. Allergies Penicillins Current Medications Current Outpatient Medications Medication Instructions acetaminophen (TYLENOL) 1,000 mg, Daily amLODIPine (NORVASC) 5 mg, Daily atorvastatin (LIPITOR) 40 mg, Nightly dutasteride (AVODART) 0.5 mg, Daily furosemide (LASIX) 20 mg, oral, Daily melatonin 3 mg, Nightly multivit-min/ferrous fumarate (MULTI VITAMIN ORAL) 1 tablet, Daily naproxen (NAPROSYN) 500 mg, 2 times daily (morning and late afternoon) naproxen sodium (Aleve) 220 mg capsule 1 tablet, 2 times daily omeprazole (PriLOSEC) [address] capsule 1 capsule, Daily (0630) sertraline (ZOLOFT) 100 mg, Daily tamsulosin (Flomax) 0.4 mg 24 hr capsule 1 capsule, Nightly Vitamin C 500 mg, 2 times daily (morning and late afternoon) Assessment/Plan 1. Coronary artery disease involving kl[place] coronary artery of kl[place] ka[place] heart without angina pectorisFollow Up In Cardiology 2. Essential hypertension 3. Mixed hyperlipidemia 4. MCCARTHY (dyspnea on exertion) 5. BMI 36.0-36.9,adult 6. Former tobacco use Scribe Attestation By signing my name below, Andreia Rodas LPN, Scribnelson attest that this documentation has been prepared under the direction and in the presence of Benito Patino DO. Provider Attestation - Scribe documentation All medical record entries made by the Scribe were at my direction and personally dictated by me. Misha reviewed the chart and agree that the record accurately reflects my personal performance of the history, physical exam, discussion and plan. documented in this encounter Plan of Treatment Upcoming Encounters Date Type Department Care Team (Late st Contact Info) Description 12/15/2025 9:00 AM EDT Office Visit [facility] 703 [facility] [address] [place] [phone] Briana Pretty, TRACK EQUIPMENT OPERATOR-POOL LIFEGUARD 703 [facility] [address] [place] [address] documented as of this encounter Visit Diagnoses Diagnosis Coronary artery disease involving kl[place] ka[place] coronary artery of kl[place] ka[place] heart without angina pectoris Essential hypertension Unspecified essential hypertension Mixed hyperlipidemia MCCARTHY (dyspnea on exertion) Other dyspnea and respiratory abnormality BMI 36.0-36.9,adult Former tobacco use documented in this encounter Additional Health Concerns Assessment Noted Time A fall risk assessment has been complete d for the patient 12/04/2024 9:17 AM EDT documented as of this encounter Care Teams Private Banker Relationship Specialty Start Date End Date Amadeo Landis MD [address] [place] [address] PCP - General Internal Medicine 08/18/23 documented as of this encounter
--- OUTSIDE RECORDS SUMMARY | 2024-12-05 12:39 | XMS_ITS | Clinical Summary ---
Author Organization [facility] Address [address] [place], [place] [id number] Care Team Providers Care Internal Medicine Doctor Name Role Phone Amadeo Landis MD Primary Care Provide r Allergies Active Allergy Reactions Criticality Noted Date Comments Penicillins Hives 08/30/2010 Medications omeprazole 20 mg ORAL capsule Take 20 mg by mouth once daily. Active atorvastatin (LIPITOR) 40 mg tablet Take 40 mg by mouth once daily. Active amLODIPine (NORVASC) 5 mg tablet Take 5 mg by mouth once daily. Active NAPROXEN SODIUM (ALEVE ORAL) Take by mouth. Take 2 tablets every morning Active tiZANidine (ZANAFLEX) 4 mg tablet Take 1 tablet by mouth at bedtime as needed (muscle relaxation). 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 014 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 Senile cataract, unspecified 08/13/2010 Encounters Date Type Department Care Team Description 10/10/2024 Lab Requisition [facility] [address] [place] [address] Keith Farnsworth MD Person encountering health services to consult on behalf of another person from Last 3 Months Immunizations Immunization Administration Dates Next Due influenza vaccine, unspecified formulation 12/06 Family History Medical History Relation Comments Coronary Artery Disease Father Relation Status Comments Father Mother Social History Tobacco Use Types Packs/Day Years Used Date Smoking Tobacco: Never Alcohol Use Standard Drinks/Week Comments No 0 (1 standard drink = 0.6 oz pur e alcohol) Sex and Gender Information Value Date Recorded Sex Assigned at Not on file Legal Sex Male 10:12 AM EST Gender Identity Not on file Sexual Orientation Not on file Last Filed Vital Signs Vital Sign Reading Time Taken Comments Blood Pressure 155/72 10/19/2016 2:10 PM EDT Pulse 52 10/19/2016 2:10 PM EDT Temperature 36.4 C (97.5 F) 10/19/2016 12:56 PM EDT Respiratory Rate 18 10/19/2016 2:10 PM EDT Oxygen Saturation 98% 10/19/2016 2:10 PM EDT Inhaled Oxygen Concentration - - Weight 105.2 kg (232 lb) 09/19/2016 8:13 AM EDT Height 182.9 cm (6') 09/19/2016 8:13 AM EDT Body Mass Index 31.46 09/19/2016 8:13 AM EDT Plan of Treatment Health Maintenance Due Date Last Done Comments Anxiety Screening 08/30/1958 Depression Screening 08/30/1957 DTaP,Tdap,Td Vaccine (1 - Tdap) 08/30/1958 Diabetes Screening 08/30/1984 Pneumococcal Vaccine: 50+ (1 of 1 - PCV) 08/30/1989 Shingrix Vaccine (1 of 2) 08/30/1989 RSV Vaccine (1 - 1-dose 75+ series) 08/30/2014 Advance Directive Discussion 02/21/2024 Covid-19 Vaccine (1 - 2024- season) 2024 Influenza Vaccine (#1) 2024 12/07/2011 Medical Devices Implanted Type Area Compressor Station Operator Device Identifier Shelf Expiration Date Model / Serial / Lot Lens Iol +25.0 Karmen Acrsf Iq - [id number] Implanted:Qty : 1 on 09/06/2010 at [facility] Intraocular Lens Left: Eye - Lens [facility] 05/21/2015 [id number] 25.0 / [id number] / [id number] Lens Iol +25 Karmen +1.5 Cyl 1 - [id number] Implanted:Qty : 1 on 09/20/2010 at [facility] Intraocular Lens Right: Eye - Lens [employer] [facility] 10/20/2013 [id number] 25.0 / [id number] / Procedures Procedure Name Priority Date/Time Associated Diagnosis Comments SURGICAL PATHOLOGY REFERENCE LAB CONSULT Routine 10/10/2024 8:05 AM EDT Person encountering health services to consult on behalf of another person from Last 3 Months Results * SURGICAL PATHOLOGY REFERENCE LAB CONSULT (10/10/2024 8:05 AM EDT) Case Report Surgical Pathology Report Case: [id number] Authorizing Provider: Keith Farnsworth MD Collected: 10/10/2024 08:05 AM Ordering Location: [facility] Received: 10/10/2024 08:05 AM [facility] Pathologist: Gisselle Pettit MD Specimen: Block(s) and/or Slide(s), 4 SLIDES [id number] 10/11/2024 11:24 AM EDT [facility] FINAL DIAGNOSIS Esophagus, biopsy (A1): - Gastric type mucosa with intestinal metaplasia, negative for dysplasia. - See comment. 10/11/2024 11:24 AM EDT [facility] at 1124 EDT Diagnosis Comment Thank you for allowing us the opportunity to review this case in consultation representing the esophageal biopsy from this 84-year-old male patient. The current [place] [employer] guidelines require an endoscopic abnormality that extends at least 1 cm proximal to the gastroesophageal junction in addition to a histologic finding of intestinal metaplasia in order to establish a diagnosis of Razo s esophagus. Clinical and endoscopic correlation is suggested. There is no evidence of dysplasia in this biopsy. Thank you for sending this case in consultation. Please do not hesitate to contact us at [phone] with questions or if additional follow-up information becomes available. This case was reviewed in conjunction with the GI pathology fellow, Amita Espinal MD. 10/11/2024 11:24 AM EDT [facility] Clinical History CONSULT REQUSTED 10/11/2024 11:24 AM EDT [facility] Performing Lab Diagnostic interpretation performed at: [facility], [address] [place] [address], [place] [address] CLIA# [id number] Vp Integration: Jose Palencia MD 10/11/2024 11:24 AM EDT [facility] Disclaimer Laboratory Developed Test (LDT) Disclaimer: Performance characteristics of immunohistochemical , immunofluorescent, and chromogenic in-situ hybridization tests have been determined by the performing laboratory within [facility]'s [facility] Pathology and Laboratory Medicine Department ([facility], [facility], [facility], [facility], [facility], [facility], or [facility]) in a manner consistent with CLIA requirements. One or more of these tests may not have been cleared or approved by the FDA. [facility] is regulated under CLIA as qualified to perform high-complexity testing. These tests are used for clinical purposes. These should not be regarded as investigational or for research. Positive and negative controls stain appropriately. 10/11/2024 11:24 AM EDT [facility] Blocks or Slides PARAFFIN EMBEDDED TISSUE BLOCK SPECIMEN / Unknown 10/10/2024 8:05 AM EDT 10/10/2024 8:05 AM EDT us Keith Farnsworth MD SURGICAL PATHOLOGY Final Result [facility] [address] [place] [address], [place] from Last 3 Months Insurance [facility] MEDICARE Care Teams Internal Medicine Doctor Relationship Specialty Start Date End Date Amadeo Landis MD [address] [place] [phone] PCP - General 08/17/10
--- OUTSIDE RECORDS SUMMARY | 2024-12-05 12:39 | XMS_ITS | Encounter Summary ---
Author Organization [facility] Address [address] [place] [address] Phone Care Team Providers Care Research Interviewer Name Role Phone Amadeo Landis MD Primary Care Provider [phone] Encounter Details Date Type Department Care Team (Latest Contact Info) Description 12/04/2024 Travel Social History Tobacco Use Types Packs/Day Years [...] on file documented as of this encounter Functional Status * BP Answer Date of Assessment Author 136/66 12/04/2024 9:17 AM EDT Cheikh Tierney MA * Pulse Answer Date of Assessment Author 62 12/04/2024 9:17 AM EDT Cheikh Tierney MA * Communicable Disease Screening Question Answer Date of Assessment Author Do you have any of the following new or worsening symptoms? None of these 12/04/2024 9:07 AM EDT Maye Ro documented as of this encounter Plan of Treatment Upcoming Encounters Date Type Department Care Team (Late st Contact Info) Description 12/15/2025 9:00 AM EDT Office Visit [facility] 703 [facility] [address] [place] [address] Briana Pretty, SCREEN ROLLER-CLERICAL PROOFREADER [address] [facility] [address], [address] [place] [address] documented as of this encounter Visit Diagnoses Not on filedocumented in this encounter Additional Health Concerns Assessment Noted Time A fall risk assessment has been complete d for the patient 12/04/2024 9:17 AM EDT documented as of this encounter Care Teams Research Interviewer Relationship Specialty Start Date End Date Amadeo Landis MD [address] [place] [address] PCP - General Internal Medicine 08/18/23 documented as of this encounter
--- OUTSIDE RECORDS SUMMARY | 2024-12-05 12:39 | XMS_ITS | Encounter Summary ---
Author Organization [facility] Address [address] [place] [address] Phone Care Team Providers Care Business Development Sales Executive Name Role Phone Amadeo Landis MD Primary Care Provider [phone] Encounter Details Date Type Department Care Team (Late st Contact Info) Description 10/24/2023 Scanned Document [facility] [address] [place] [address] Scanning, Generic Provider Social History Tobacco Use Types Packs/Day Years Used Date Smoking Tobacco: Former Pipe Smokeless Tobacco: Never Alcohol Use Standard Drinks/Week Comments Yes 0 (1 standard drink = 0.6 oz pur e alcohol) occasionally Sex and Gender Information Value Date Recorded Sex Assigned at Not on file Legal Sex Male 11:38 AM EST Gender Identity Not on file Sexual Orientation Not on file COVID-19 Exposure Response Date Recorded In the last 10 days, have yo u been in contact with someone who was confirmed or suspected to have Coronavirus/COVID-19? No / Unsure 10/10/2023 11:23 AM EDT documented as of this encounter Plan of Treatment Upcoming Encounters Date Type Department Care Team (Late st Contact Info) Description 12/15/2025 9:00 AM EDT Office Visit [facility] [address] [facility] [address] [place] [address] Briana Pretty, COLLECTIONS TECHNICIAN-PHOTOCOPYING MACHINE OPERATOR [address] [facility] [address] [place], [place] [id number] documented as of this encounter Visit Diagnoses Not on filedocumented in this encounter Additional Health Concerns Assessment Noted Time A fall risk assessment has been complete d for the patient 08/18/2023 12:57 PM EDT documented as of this encounter Care Teams Business Development Sales Executive Relationship Specialty Start Date End Date Amadeo Landis MD [address] [place] [address] PCP - General Internal Medicine 08/18/23 documented as of this encounter
--- OUTSIDE RECORDS SUMMARY | 2024-12-05 12:39 | XMS_ITS | Encounter Summary ---
Author Organization [facility] Address [address] [place] [address] Phone Care Team Providers Care Sawmill Moulder Operator Name Role Phone Amadeo Landis MD Primary Care Provider [phone] Encounter Details Date Type Department Care Team (Late st Contact Info) Description 11/07/2024 Scanned Document [facility] [address] [place] [address] Scanning, Generic Provider Social History [...] on file documented as of this encounter Plan of Treatment Upcoming Encounters Date Type Department Care Team (Late st Contact Info) Description 12/15/2025 9:00 AM EDT Office Visit [facility] [address] [facility] [address] [place] [address] Briana Pretty, LEATHER STAMPER-MELTER LOADER [address] [facility] [address] [place] [address] documented as of this encounter Visit Diagnoses Not on filedocumented in this encounter Additional Health Concerns Assessment Noted Time A fall risk assessment has been complete d for the patient 08/18/2023 12:57 PM EDT documented as of this encounter Care Teams Sawmill Moulder Operator Relationship Specialty Start Date End Date Amadeo Landis MD [address] [place] [address] PCP - General Internal Medicine 08/18/23 documented as of this encounter
--- OUTSIDE RECORDS SUMMARY | 2024-12-05 12:39 | XMS_ITS | Encounter Summary ---
Author Organization [facility] Address [address] [place] [address] Phone Care Team Providers Care Regulatory Manager Name Role Phone Amadeo Landis MD Primary Care Provider [phone] Encounter Details Date Type Department Care Team (Late st Contact Info) Description 08/16/2023 Scanned Document [facility] [address] [place] [address] Scanning, Generic Provider Social History Tobacco Use Types Packs/Day Years Used Date Smoking Tobacco: Never Assessed Sex and Gender Information Value Date Recorded Sex Assigned at Not on file Legal Sex Male 11:38 AM EST Gender Identity Not on file Sexual Orientation Not on file COVID-19 Exposure Response Date Recorded In the last 10 days, have yo u been in contact with someone who was confirmed or suspected to have Coronavirus/COVID-19? No / Unsure 08/18/2023 12:24 PM EDT documented as of this encounter Functional Status * Question Answer Date of Assessment Author BP 130/62 08/18/2023 12:53 PM EDT Mary Khan CMA Pulse 60 08/18/2023 12:53 PM EDT Mary Khan CMA * Communicable Disease Screening Question Answer Date of Assessment Author Do you have any of the follo wing new or worsening symptoms? None of these 08/18/2023 12:24 PM EDT Gato Vela documented as of this encounter Plan of Treatment Upcoming Encounters Date Type Department Care Team (Late st Contact Info) Description 12/15/2025 9:00 AM EDT Office Visit [facility] [address] [facility] [address] [place] [address] Briana Pretty, FIRE PRODUCTION OPERATOR-SURGICAL PROCESSOR [address] [facility] [address], [facility] [address] [place] [address] documented as of this encounter Visit Diagnoses Not on filedocumented in this encounter Care Teams Regulatory Manager Relationship Specialty Start Date End Date Amadeo Landis MD [address] [place] [address] PCP - General Internal Medicine 08/18/23 documented as of this encounter
--- OUTSIDE RECORDS SUMMARY | 2024-12-05 12:39 | XMS_ITS | Clinical Summary ---
Author Organization [facility] Address [address] [place] [address] Phone Care Team Providers Care Salon Leader Name Role Phone Amadeo Landis MD Primary Care Provider [phone] Allergies Active Allergy Reactions Criticality Noted Date Comments Penicillins Hives 05/02/2010 Medications Vitamin C 500 mg tablet Take 1 tablet (500 mg) by mouth 2 times daily (morning and late afternoon). 3 Active melatonin 3 mg tablet 1 tablet (3 mg) once daily at bedtime. 3 Active sertraline (Zoloft) 100 mg tablet Take 1 tablet (100 mg) by mouth once daily. 3 Active atorvastatin (Lipitor) 40 mg tablet Take 1 tablet (40 mg) by mouth once daily at bedtime. 3 Active acetaminophen (Tylenol) 500 mg tablet 2 tablets (1,000 mg) once daily. 3 Active multivit-min/fe rrous fumarate (MULTI VITAMIN ORAL) Take 1 tablet by mouth once daily. Active naproxen sodium (Aleve) 220 mg capsule Take 1 tablet by mouth 2 times a day. Active furosemide (Lasix) 20 mg tabletIndicatio ns:Shortness of breath Take 1 tablet (20 mg) by mouth once daily. 90 tablet 3 4 Active tamsulosin (Flomax) 0.4 mg 24 hr capsule Take 1 capsule (0.4 mg) by mouth once daily at bedtime. 4 Active dutasteride (Avodart) 0.5 mg capsule Take 1 capsule (0.5 mg) by mouth once daily. 5 10/19/19 26 Active amLODIPine (Norvasc) 5 mg tablet Take 1 tablet (5 mg) by mouth once daily. Active naproxen (Naprosyn) 250 mg tablet Take 2 tablets (500 mg) by mouth 2 times daily (morning and late afternoon). Active omeprazole (PriLOSEC) [address] capsule Take 1 capsule (40 mg) by mouth early in the morning.. 5 Active ferrous sulfate 324 mg (65 mg elemental iron) EC tablet (delayed release) 1 tablet (65 mg) once daily. 3 12/05/19 Discontinu ed(Med List Cleanup) aspirin 81 mg EC tablet Take 1 tablet (81 mg) by mouth once daily. 12/05/19 Discontinu ed(Med List Cleanup) Active Problems Problem Noted Date Diagnosed Date Mixed hyperlipidemia 11/28/2023 CAD (coronary artery disease) 11/28/2023 Essential hypertension 11/28/2023 Former tobacco use 11/28/2023 Abnormal EKG 08/18/2023 MCCARTHY (dyspnea on exertion) 08/18/2023 BMI 36.0-36.9,adult 08/18/2023 Encounters Date Type Department Care Team Description 12/04/2024 9:00 AM EDT Office Visit [place] [address] [address] Hayder Patino, DO Coronary artery disease involving peoria coronary artery of peoria heart without angina pectoris; Essential hypertension; Mixed hyperlipidemia; MCCARTHY (dyspnea on exertion); BMI 36.0-36.9,adult; Former tobacco use Discharge Disposition: Home 12/04/2024 Travel 11/07/2024 Scanned Document [facility] [address] [place] [address] Scanning, Generic Provider from Last 3 Months Family History Medical History Relation Name Comments Congenital heart disease Brother Heart attack Father Cardiac Disorder Mother Relation Name Status Comments Brother Father Mother Social History Tobacco Use Types [...] Mass Index 36.68 12/04/2024 9:17 AM EDT Plan of Treatment Upcoming Encounters Date Type Department Care Team (Late st Contact Info) Description 12/15/2025 9:00 AM EDT Office Visit [facility] [address] [facility] [address] [place] [address] Briana Pretty, NEGATIVE STRIPPER-OBGYN NURSE [address] [facility] [address] [place] [address] Health Maintenance Due Date Last Done Comments Lipid Panel 1940 Medicare Annual Wellness Visit (AWV) 1940 RSV High Risk: (Elderly (60+) or Population) (1 - 1-dose 75+ series) 08/30/2014 Zoster Vaccines (2 of 3) 05/07/2015 03/12/2015 Influenza Vaccine (#1) 2024 , 11/17/2022, 12/13/2021, Additional history exists COVID-19 Vaccine (3 - 2024- season) 2024 04/23/2024, 03/16/2023 DTaP/Tdap/Td Vaccines (3 - Td or Tdap) 02/26/2029 02/26/2019, 09/20/2009 Pneumococcal Vaccine Completed 04/07/2017, 02/20/2017, 11/12/2014, Additional history exists Irritable Bowel Syndrome Discontinued 05/11/2021 HIB Vaccines Aged Out No longer eligi ble based on patient's age to complete this topic HPV Vaccines Aged Out No longer eligi ble based on patient's age to complete this topic Hepatitis A Vaccines Aged Out No long er eligible based on patient's age to complete this topic Hepatitis B Vaccines Aged Out No long er eligible based on patient's age to complete this topic IPV Vaccines Aged Out No longer eligi ble based on patient's age to complete this topic Meningococcal Vaccine Aged Out No alem lucille eligible based on patient's age to complete this topic Rotavirus Vaccines Aged Out No longer eligible based on patient's age to complete this topic Insurance MEDICARE PART A AND B [facility] Care Teams Salon Leader Relationship Specialty Start Date End Date Amadeo Landis MD [address] [place] [address] PCP - General Internal Medicine 08/18/23
--- OUTSIDE RECORDS SUMMARY | 2024-12-05 12:39 | XMS_ITS | Encounter Summary ---
Author Organization [facility] Address [address] [place] [address] Care Team Providers Care Sales And Marketing Director Name Role Phone Amadeo Landis MD Primary Care Provide r Source Comments In the event this information is protected by the Federal Confidentiality of Alcohol and Drug AbusePatient Records regulations: The Federal rules restrict any use of the information to criminally investigate or prosecute any alcohol or drug abuse patient.[facility] Encounter Details Date Type Department Care Team (Late st Contact Info) Description 10/10/2024 Lab Requisition [facility] [place] [address] Keith Farnsworth MD [address] [place] [address] Person encountering health services to consult on behalf of another person Social History Tobacco Use Types Packs/Day Years [...] as of this encounter Plan of Treatment Not on file documented as of this encounter Procedures Procedure Name Priority Date/Time Associated Diagnosis Comments SURGICAL PATHOLOGY REFERENCE LAB CONSULT Routine 10/10/2024 8:05 AM EDT Person encountering health services to consult on behalf of another person documented in this encounter Results * SURGICAL PATHOLOGY REFERENCE LAB CONSULT (10/10/2024 8:05 AM EDT) Case Report Surgical Pathology Report Case: [id number] Authorizing Provider: Keith Farnsworth MD Collected: 10/10/2024 08:05 AM Ordering Location: [facility] Received: 10/10/2024 08:05 AM [facility] Pathologist: Gisselle Pettit MD Specimen: Block(s) and/or Slide(s), 4 SLIDES [id number] 10/11/2024 11:24 AM EDT [facility] FINAL DIAGNOSIS Esophagus, biopsy (A1): - Gastric type mucosa with intestinal metaplasia, negative for dysplasia. - See comment. 10/11/2024 11:24 AM EDT [facility] at 1124 EDT Diagnosis Comment Thank you for allowing us the opportunity to review this case in consultation representing the esophageal biopsy from this 84-year-old male patient. The current [employer] guidelines require an endoscopic [...] do not hesitate to contact us at [phone] with questions or if additional follow-up information becomes available. This case was reviewed in conjunction with the GI pathology fellow, Amita Espinal MD. 10/11/2024 11:24 AM EDT [facility] Clinical History CONSULT REQUSTED 10/11/2024 11:24 AM EDT [facility] Performing Lab Diagnostic interpretation performed at: [facility], [address] [place] [address], [place] [address] CLIA# [id number] Teacher Cclc: Jose Palencia MD 10/11/2024 11:24 AM EDT [facility] Disclaimer Laboratory Developed Test (LDT) Disclaimer: Performance characteristics of immunohistochemical , immunofluorescent, and chromogenic in-situ hybridization tests have been determined by the performing laboratory within [facility] and Laboratory Medicine Department ([facility], [facility], [facility], [facility], [facility], [facility], or [facility]) in a manner consistent with CLIA requirements. One or more of these tests may not have been cleared or approved by the FDA. [facility] is regulated under CLIA as qualified to perform high-complexity testing. These tests are used for clinical purposes. These should not be regarded as investigational or for research. Positive and negative controls stain appropriately. 10/11/2024 11:24 AM EDT [facility] Blocks or Slides PARAFFIN EMBEDDED TISSUE BLOCK SPECIMEN / Unknown 10/10/2024 8:05 AM EDT 10/10/2024 8:05 AM EDT us Keith Farnsworth MD SURGICAL PATHOLOGY Final Result [facility] [address] [facility] [address] [address], documented in this encounter Visit Diagnoses Diagnosis Person encountering health services to consult on behalf of another person Other person consulting on behalf of another person documented in this encounter Care Teams Sales And Marketing Director Relationship Specialty Start Date End Date Amadeo Landis MD [address] [place] [phone] PCP - General 08/17/10 documented as of this encounter
--- OUTSIDE RECORDS SUMMARY | 2024-12-05 12:39 | XMS_ITS | Clinical Summary ---
Author Organization [facility] Address [address] [facility] [place] [address] Care Team Providers Care Boat Laborer Name Role Phone Unavailable Primary Care Provider Unavailabl e Social History Tobacco Use Types Packs/Day Years Used Date Smoking Tobacco: Never Assessed Sex and Gender Information Value Date Recorded Sex Assigned at Not on file Legal Sex Male 7:10 PM EDT Gender Identity Not on file Sexual Orientation Not on file Last Filed Vital Signs Vital Sign Reading Time Taken Comments Blood Pressure 130/70 05/11/2021 12:00 PM EDT Pulse - - Temperature - - Respiratory Rate - - Oxygen Saturation - - Inhaled Oxygen Concentration - - Weight 111 kg (245 lb) 06/04/2021 12:00 PM EDT Height 180.3 cm (5' 11 ) 05/11/2021 12:00 PM EDT Body Mass Index 34.17 05/11/2021 12:00 PM EDT Plan of Treatment Not on file Insurance MEDICARE
--- OUTSIDE RECORDS SUMMARY | 2024-12-05 12:39 | XMS_ITS | Encounter Summary ---
Author Organization [facility] Address [address] [place], [place] [id number] Care Team Providers Care Brazer Helper Induction Name Role Phone Amadeo Landis MD Primary Care Provide r Source Comments In the event this information is protected by the Federal Confidentiality of Alcohol and Drug AbusePatient Records regulations: The Federal rules restrict any use of the information to criminally investigate or prosecute any alcohol or drug abuse patient.[facility] Encounter Details Date Type Department Care Team (Late st Contact Info) Description 08/02/2016 Abstract Urology [address] [place] [address] Lea Morrell, BOTTLE CAPPING MACHINE OPERATOR.[facility] [address] [place] [address] Social History Tobacco Use Types Packs/Day Years [...] Procedure Name Priority Date/Time Associated Diagnosis Comments BACTERIAL CULTURE, URINE Routine 08/02/2016 7:08 PM EDT Testicular pain documented in this encounter Results * URINE CULTURE (08/02/2016 7:08 PM EDT) Specimen Request Specimen received in preservative 08/03/2016 8:30 PM EDT [facility] Culture No growth (<100 CFU/ml) 08/05/2016 10:01 PM EDT [facility] Specimen of unknown material (specimen) URINE SPECIMEN / Unknown 08/02/2016 7:08 PM EDT 08/03/2016 8:30 PM EDT Lea Morrell APRN.[facility] MICROBIOLOGY Edited Result - Final [facility] [address] [place] [facility] [place] [address] documented in this encounter Visit Diagnoses Diagnosis Testicular pain Unspecified disorder of male genital organs documented in this encounter Care Teams Brazer Helper Induction Relationship Specialty Start Date End Date Amadeo Landis MD [address] [place] [address] PCP - General 08/17/10 documented as of this encounter
--- OUTSIDE RECORDS SUMMARY | 2024-12-05 12:39 | XMS_ITS | Encounter Summary ---
Author Organization [facility] Address [address] [place] [address] Phone Care Team Providers Care Sugarcane Research Technician Name Role Phone Amadeo Landis MD Primary Care Provider [phone] Encounter Details Date Type Department Care Team (Late st Contact Info) Description 07/28/2023 Scanned Document [facility] [address] [place] [address] Scanning, Generic Provider Social History [...] Description 12/15/2025 9:00 AM EDT Office Visit [facility] [address] [facility] [address] [place] [address] Briana Pretty, SALON PROFESSIONAL-PAYABLE REPRESENTATIVE [address] [facility] [address], [address] [place] [address] documented as of this encounter Procedures Procedure Name Priority Date/Time Associated Diagnosis Comments ECHOCARDIOGRAM 07/28/2023 documented in this encounter Results * Echocardiogram (07/28/2023) Narrative 07/28/2023 Ordered by an unspecified provider. us Generic Provider Scanning CV ECHO PROCEDURES Fin al Result documented in this encounter Visit Diagnoses Not on filedocumented in this encounter Care Teams Sugarcane Research Technician Relationship Specialty Start Date End Date Amadeo Landis MD [address] [place] [address] PCP - General Internal Medicine 08/18/23 documented as of this encounter
[2024-12-05 13:48] LABS: Anion Gap 13.1; Blood Urea Nitrogen 21.0 mg/dL (7.0-18.0); Calcium 8.7 mg/dL (8.5-10.1); Carbon Dioxide 25.2 mmol/L (21.0-32.0); Chloride 109 mmol/L (98-107); Estimated GFR (African America >60 (>=60 mL/min/1.73m^2); Estimated GFR (Non-African Ame >60 (>=60 mL/min/1.73m^2); Glucose 92 mg/dL (74-106); Potassium 4.3 mmol/L (3.5-5.1); Sodium 143 mmol/L (136-145)
[2024-12-05 14:00] LABS: Hematocrit 45.6 % (42.0-54.0); Hemoglobin 14.9 g/dL (14.0-18.0); Immature Granulocytes Abs Auto 0.01 10^3/uL (0.00-0.03); Immature Granulocytes Pct Auto 0.1 % (0.0-0.5); Lymphocytes Absolute Auto 2.3 10^3/uL (1.2-3.8); Mean Corpuscular HGB Conc 32.7 g/dL (29.9-35.2); Mean Corpuscular Hemoglobin 29.7 pg (25.9-34.0); Mean Corpuscular Volume 91.0 fL (80.0-94.0); Platelet Count 186 10^3/uL (150-450); Red Blood Count 5.01 10^6/uL (4.70-6.10); White Blood Count 6.8 10^3/uL (4.0-11.0)
[2024-12-05 14:17] LABS: INR 1.08; Partial Thromboplastin Time 27.6 sec (22.3-36.2); Prothrombin Time 11.4 sec (9.0-11.6)
--- NOTE | 2024-12-05 14:50 | PM.PRESUREVA ---
History of Present Illness History of Present Illness Chief complaint: BPH with Obstruction Narrative: Mr. Danyel Jung is a pleasant 84-year-old male who presents presurgical testing for the diagnosis of enlarged prostate with urinary obstruction and weak urine stream. He is scheduled for cystoscopy/TURP with Dr. Lindsay on 12/12/2024 Review of Systems ROS Narrative REVIEW OF SYSTEMS: Negative except as stated in HPI, ten or more systems reviewed. Constitutional: No fever, chills, weakness ENT: No sore throat or epistaxis Cardiovascular: No edema, chest pain, palpitations, or activity intolerance Respiratory: No shortness of breath, cough, or wheezing Musculoskeletal: Complaints of intermittent pain to the right shoulder after he sustained a hairline fracture to the humerus while attending physical therapy or no swelling Gastrointestinal: No abdominal pain, constipation, diarrhea, or vomiting Genitourinary: No dysuria or hematuria, weak urine stream Neurological: No numbness, tingling, weakness, or headache Psychiatric: No mood changes PFSH PFS Medical History (Updated 12/05/24 @ 14:49 by Silvia Stanley) Mixed hyperlipidemia ?E78.2 - Mixed hyperlipidemia (ICD-10) Hypertension ?I10 - Essential (primary) hypertension (ICD-10) Coronary artery disease ?I25.10 - Atherosclerotic heart disease of squ[place] coronary artery without angina pectoris (ICD-10) Stress fracture of right shoulder ?M84.311A - Stress fracture, right shoulder, initial encounter for fracture (ICD-10) Hearing aid worn ?Z97.4 - Presence of external hearing-aid (ICD-10) Hearing loss ?H91.90 - Unspecified hearing loss, unspecified ear (ICD-10) Cataract ?H26.9 - Unspecified cataract (ICD-10) Testicular lesion ?N50.9 - Disorder of male genital organs, unspecified (ICD-10) Smoker ?F17.200 - Nicotine dependence, unspecified, uncomplicated (ICD-10) Shortness of breath ?R06.02 - Shortness of breath (ICD-10) Postoperative pain ?G89.18 - Other acute postprocedural pain (ICD-10) BRANDON on CPAP ?G47.33 - Obstructive sleep apnea (adult) (pediatric) (ICD-10) Left hydrocele ?N43.3 - Hydrocele, unspecified (ICD-10) Hypogonadism in male ?E29.1 - Testicular hypofunction (ICD-10) History of prostatitis ?Z87.438 - Personal history of other diseases of male genital organs (ICD-10) Generalized neuropathy ?G62.9 - Polyneuropathy, unspecified (ICD-10) Cubital tunnel syndrome on right ?G56.21 - Lesion of ulnar nerve, right upper limb (ICD-10) Colon cancer ?C18.9 - Malignant neoplasm of colon, unspecified (ICD-10) Carpal tunnel syndrome ?G56.00 - Carpal tunnel syndrome, unspecified upper limb (ICD-10) Amputation of left index finger ?S68.111A - Complete traumatic metacarpophalangeal amputation of left index finger, initial encounter (ICD-10) Blind left eye ?H54.40 - Blindness, one eye, unspecified eye (ICD-10) Surgical History (Updated 12/05/24 @ 13:28 by Silvia Stanley) History of right shoulder replacement ?Z96.611 - Presence of right artificial shoulder joint (ICD-10) History of tonsillectomy ?Z90.89 - Acquired absence of other organs (ICD-10) Previous back surgery ?Z98.890 - Other specified postprocedural states (ICD-10) History of cataract extraction with lens replacement History of knee replacement ?Z96.659 - Presence of unspecified artificial knee joint (ICD-10) History of arthroplasty of left knee ?Z96.652 - Presence of left artificial knee joint (ICD-10) Hx of total knee arthroplasty ?Z96.659 - Presence of unspecified artificial knee joint (ICD-10) History of hand surgery ?Z98.890 - Other specified postprocedural states (ICD-10) History of colectomy ?Z90.49 - Acquired absence of other specified parts of digestive tract (ICD-10) History of cystoscopy ?Z98.890 - Other specified postprocedural states (ICD-10) Family History (Updated 12/05/24 @ 13:07 by Silvia Stanley) Other Family history of breast cancer Family history of colon cancer Family history of heart disease Family history of hypertension Family history of myocardial infarction Social History (Updated 12/05/24 @ 13:02 by Silvia Stanley) Within the past year, how often did you have a drink containing alcohol: monthly or less Smoking status: Former smoker Non-prescribed substance use: denies use Previous occupational history: retired Highest level of school completed/degree received: high school graduate Meds Home Medications and Allergies Home Medications ?Medication ?Instructions ?Recorded ?Confirmed ?Type acetaminophen 500 mg tablet (Pain 1,000 mg PO DAILY 12/05/24 12/05/24 History Reliever Extra Strength (acetaminophen)) amlodipine 5 mg tablet 5 mg PO DAILY 12/05/24 12/05/24 History ascorbic acid (vitamin C) 500 mg 500 mg PO BID 12/05/24 12/05/24 History tablet (Vitamin C) atorvastatin 40 mg tablet 40 mg PO DAILY 12/05/24 12/05/24 History dutasteride 0.5 mg capsule 0.5 mg PO DAILY 12/05/24 12/05/24 History furosemide 20 mg tablet 20 mg PO DAILY 12/05/24 12/05/24 History multivitamin (Daily Multi-Vitamin 1 tab PO DAILY 12/05/24 12/05/24 History tablet) naproxen sodium 220 mg capsule 220 mg PO BID 12/05/24 12/05/24 History (Aleve) omeprazole 40 mg capsule,delayed 40 mg PO .AM 12/05/24 12/05/24 History release sertraline 100 mg tablet 100 mg PO DAILY 12/05/24 12/05/24 History tamsulosin 0.4 mg capsule 0.4 mg PO BEDTIME 12/05/24 12/05/24 History Allergies Allergy/AdvReac Type Severity Reaction Status Date / Time Penicillins Allergy Intermediate Hives Verified 12/05/24 12:58 Exam Narrative Exam Narrative: Constitutional: Awake, alert, comfortable, well-appearing, nontoxic, interactive, vital signs as charted Head: Normocephalic, atraumatic Eyes: Conjunctiva and lids normal to inspection, decreased pupillary reaction to the left eye with reported blindness to the left eye ENT: Tympanic membranes pearly weir, nonerythematous, noninjected, naris patent, posterior oropharynx clear, oral mucosa moist bilateral use of hearing aids Neck: Supple, normal appearance, normal range of motion, no meningeal signs, no lymphadenopathy Respiratory: No respiratory distress, breath sounds clear Cardiovascular: Regular rate and rhythm, strong and regular heart tones Abdomen: Nontender, normal bowel sounds, soft, no CVA tenderness Musculoskeletal: Normal gait, no swelling or edema Skin: No rashes or induration, no lesions, only visible skin inspected Neuro: No neurological deficits, normal sensation Psychiatric: Oriented ?3, normal affect Assessment and Plan Assessment and Plan (1) BPH with obstruction/lower urinary tract symptoms: Plan Cystoscopy/TURP scheduled with Dr. Lindsay on December 12, 2024
== END 2024-12-05 12:30 | disposition home or self-care (01) ==
LOC: PST 12:35
PROVIDERS: PCP Internal Medicine; Visit Provider Urology
DX: Z01.812 Encounter for preprocedural laboratory examination (principal); Z01.818 Encounter for other preprocedural examination; N40.1 Benign prostatic hyperplasia with lower urinary tract symptoms
CPT/HCPCS: 80048; 85025; 85610; 85730; G0463

== ENCOUNTER 2024-12-12 11:05 | Day surgery (SDC) | payer MEDICARE, SELFPAY ==
--- OUTSIDE RECORDS SUMMARY | 2024-12-03 05:34 | XMS_ITS | Continuity of Care Document ---
Author Organization [facility] Address [address] [place] [address] Phone Care Team Providers Care Sign Shop Supervisor Name Role Phone Amadeo Landis MD Primary Care Provider Amadeo Landis MD Attending Provider Jalil Harding DO Attending Provider Joseph Graham MD Attending Provider [phone] Joseph Graham MD Other Provider [phone] Jeremy Marley APRN Attending Provider Care Teams Patient Care Team Team Status: Active Member Role Status Donna Landis MD Primary Care Provider Active Visit Care Team Team Status: Inactive Member Role Status Donna Landis MD Primary Care Provider Active Start: September 16, 2024 End: September 16, 2024Papa Cunningham ProviderActiveStart: September 16, 2024 End: September 16, 2024 Visit Care Team Team Status: Inactive Member Role Status Donna Landis MD Primary Care Provider Active Start: September 23, 2024 End: September 23, 2024Liss Jauregui ProviderActiveStart: September 23, 2024 End: September 23, 2024 Visit Care Team Team Status: Active Member Role Status Donna Landis MD Primary Care Provider Active Start: October 07, 2024 Papa Porter ProviderActiveStart: October 07, 2024 Joseph Graham MDOther ProviderActiveStart: October 07, 2024 Visit Care Team Team Status: Inactive Member Role Status Donna Landis MD Primary Care Provider Active Start: October 09, 2024 End: October 09, 2024Papa Cunningham ProviderActiveStart: October 09, 2024 End: October 09, 2024 Visit Care Team Team Status: Inactive Member Role Status Donna Landis MD Primary Care Provider Active Start: October 24, 2024 End: October 24, 2024Gilbert Bass ProviderActiveStart: October 24, 2024 End: October 24, 2024 Visit Care Team Team Status: Inactive Member Role Status Donna Landis MD Primary Care Provider Active Start: October 28, 2024 End: October 28, 2024Liss Jauregui ProviderActiveStart: October 28, 2024 End: October 28, 2024 Visit Care Team Team Status: Inactive Member Role Status Donan Landis MD Primary Care Provider Active Start: October 28, 2024 End: October 28, 2024Liss Jauregui ProviderActiveStart: October 28, 2024 End: October 28, 2024 Visit Care Team Team Status: Inactive Member Role Status Donna Landis MD Primary Care Provider Active Start: November 07, 2024 End: November 07, 2024Liss Jauregui ProviderActiveStart: November 07, 2024 End: November 07, 2024 Visit Care Team Team Status: Inactive Member Role Status Donna Landis MD Primary Care Provider Active Start: November 13, 2024 End: November 13, 2024Liss Jauregui ProviderActiveStart: November 13, 2024 End: November 13, 2024 Visit Care Team Team Status: Inactive Member Role Status Donna Landis MD Primary Care Provider Active Start: November 18, 2024 End: November 18, 2024Liss Jauregui ProviderActiveStart: November 18, 2024 End: November 18, 2024 Visit Care Team Team Status: Inactive Member Role Status Donna Landis MD Primary Care Provider Active Start: November 18, 2024 End: November 18, 2024Liss Jauregui ProviderActiveStart: November 18, 2024 End: November 18, 2024 Patient Care Team Team Status: Inactive Member Role Status Dates Amadeo Landis MD Primary Care Provider Active Start: December 03, 2024 End: December 03, 2024Gilbert Bass ProviderActiveStart: December 03, 2024 End: December 03, 2024 Chief Complaint and Reason for Visit Chief Complaint Admit Date medicare wellness September 16, 2024 1:25 pm 6 WEEKS September 23, 2024 9:1 4am dysphasia October 07, 2024 11 :36am N50.819 October 09, 2024 7: 41am egd follow up/2 weeks October 24 2:08pm INCREASED RT SHOULDER PAIN AFTER THERAPY October 28, 2024 9:29am Z96.611 - 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 October 28, 2024 9:42am z96.611 [id number] November 07, 2024 1:22pm B rt TSR surgery November 13, 2024 9:00am 8 WEEKS November 18, 2024 9:11am Z96.611 - 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 November 18, 2024 9:28am 6wk GERD December 03, 2024 9 :14am Reason for Visit Admit Date Depression September 16, 2024 1:25 pm Dysphasia September 16, 2024 1:25 pm Encounter for subsequent [facility] wellness visit (AWV) in Medicare patient September 16, 2024 1:25pm Obesity September 16, 2024 1:25 pm Status post reverse arthroplasty of shou lder September 16, 2024 1:25pm Testicular pain September 16, 2024 1:25 pm Primary osteoarthritis, right shoulder A ugust 2024 9:14am Right rotator cuff tear September 23, 2024 9:14am Status post reverse arthroplasty of shou lder September 23, 2024 9:14am GERD (gastroesophageal reflux disease) S 2024 2:08pm Primary osteoarthritis, right shoulder S epmber 2024 9:29am Right rotator cuff tear October 28 9:29am Status post reverse arthroplasty of shou lder October 28, 2024 9:29am Acromial fracture November 18, 2024 9:11am Primary osteoarthritis, right shoulder S eptember 2024 9:11am Right rotator cuff tear November 18, 2024 9:11am Status post reverse arthroplasty of shou lder November 18, 2024 9:11am GERD (gastroesophageal reflux disease) O ctober 2024 9:14am Allergies, Adverse Reactions, Alerts Allergen Type Severity Reaction Last Updated Verified Status Penicillins Allergy Unknown Hives December 03, 2024 9:17am Ye s Active Social History Smoking Status Status Start Date End Date Date of Observa tion Ex-smoker (finding) October 07, 2024 11:50am Observation Status Observation Response Date of Response Legal Sex Male (finding) Sex Assigned At BirthMaleJuly 1940 Family History Relationship Condition Age at Onset Recorded Date/T channing father Unknown Cerebrovascular accident (CVA)UnknownbrotherHeart diseaseUnknownsonMalignant neoplasm of colonUnknownmotherDeceasedUnknown Problems Active Problems Medical Problem Onset Date Status Comments History of tobacco abuse Unknown Active Right carpal tunnel syndromeUnknownActiveEncounter for subsequent annual wellness visit (AWV) in Medicare patientUnknownActiveTrigger finger, right ring fingerUnknownActivePrimary osteoarthritis, right shoulderUnknownActiveLeft carpal tunnel syndromeUnknownActiveOSA on CPAPUnknownActiveImpaired mobility and activities of daily livingUnknownActiveAcromial fractureUnknownActiveRight rotator cuff tearUnknownActiveShortness of breathUnknownActiveDysphasiaUnknown ActiveCystUnknownActiveDry skinUnknownActiveAcute bronchitis and bronchiolitis UnknownActiveDyslipidemiaUnknownActiveInsomnia, psychophysiologicalUnknownActive 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 Status post reverse arthroplasty of shoulderUnknownActiveAbnormal chest x-ray UnknownActiveInfection of prosthetic left knee jointUnknownActiveHydrocele in adultUnknownActiveBilateral hand painUnknownActivePleural plaque due to asbestos exposureUnknownActiveImpingement of right shoulderUnknownActiveCyst of testis UnknownActiveBMI 36.0-36.9,adultUnknownActiveRight shoulder painUnknownActive Ganglion cyst of volar aspect of right wristUnknownActiveRight wrist painUnknown ActiveHydrocele, leftUnknownActiveGERD (gastroesophageal reflux disease)Unknown ActiveHistory of asbestos exposureUnknownActiveHTN (hypertension)UnknownActive ObesityUnknownActiveUlnar impaction syndromeUnknownActiveArthritis of right wristUnknownActiveExcessive daytime sleepinessUnknownActiveInactive/Resolved Problems Medical Problem Onset Date Status Comments Postoperative pain of extremity Unknown Resolved Cubital tunnel syndrome on rightUnknownResolvedCarpal tunnel syndromeUnknown Resolvedwith surgery on rightStatus post revision of total replacement of left kneeUnknownResolvedLeft leg painUnknownResolvedPostoperative painUnknownResolved S/P right colectomyUnknownResolved Medications Medication Status Dose Units Route Directions Qty Days St art Date Stop Date End Date Instructions Adherence Furosemide 20 mg tablet Discontinued 20 MG PO Every morning 90 90 Decem 2023 5:51pm September 23, 2024 8:55amOxycodone 5 mg tbpjzqJsdvaitjtuce3RFGAO1J as needed for Aips624Nstj 2024July 2024 1:42pmDO NOT RECONCILE UNTIL DOS 07/31/24 TO BE USED POST OPDocusate Sodium (Colace) 100 mg kvylrvpVqjgfkelgznr834KRFE Twice daily as needed for Gobzcfsrwvri4210Teys 10th, 2025 12:00amA2024 8:55amDO NOT RECONCILE UNTIL DOS 07/31/24 TO BE USED POST OPAcetaminophen 500 mg qjoiedMldayfgkyffa046DZMNT8Y as needed for Pbst05Mghr 2024 12:00amA2024 8:55amDO NOT RECONCILE UNTIL DOS 07/31/24 TO BE USED POST OPPolyethylene Glycol 3350 (Miralax) 17 gram powder in packet Bgenyqipejyw55LIJLbipim4900Hygm 2024 12:00amA2024 8:56am1 packet mixed with 8 ounces of fluid. DO NOT RECONCILE UNTIL DOS 07/31/24 TO BE USED POST OPMeloxicam 15 mg snongiRvsttafbrpob39DXQNmowpp6949Lxme 2025 12:00amAugust 2024 8:56amDO NOT RECONCILE UNTIL DOS 07/31/24 TO BE USED POST OPDoxycycline Hyclate 100 mg ktvxntnDjojioynkgvw249MWSDUmhkz tdlsp5241Xkue 10th, 2025 12:00amJune 2024 9:27amDO NOT RECONCILE UNTIL DOS 07/31/24 TO BE USED POST OPAtorvastatin 40 mg LxvzomYdqknmgpepzi58XCITXootd at bedtime March 31, 2020 1:00amFebruary 2022 10:17amSertraline 100 mg Tablet Prluuyyggppb350SEVEDhiga at bedtimeFebruary 2020 1:00amFebruary 2022 10:17amAmlodipine 10 mg HaiqmySnjozurealzr62FIYUCjtfj morningFebruary 2020 1:00amFebruary 2022 10:17amNaproxen Sodium (Aleve) 220 mg Tablet Xqnugbpvjjnj852JXONPrkio morning as needed for PainFebruary 2020 1:00am March 10, 2022 2:57pmOmeprazole 20 mg Tablet,Delayed Release (Dr/Ec) Kzxfufefasef96XCVZZiebl morningFebruary 2020 1:00amFebruary 2022 10:43muOnbeebggsjyo-Tcqw-Kqyan Acid (Sentry) 18-400 mg-mcg TabletDiscontinued1 TABPOEvery morningFebruary 2020 1:00amFebruary 2022 10:17amVancomycin - Pharmacy SxqfccBjasntsxktch5CYSMRNKguk as needed for pharmacy dosingJanuary 2022 4:42pmFebruary 2022 10:17amAtorvastatin 20 mg TabletDiscontinued 20MGPODaily at nyfabqc1823Filvfxxu 2022 1:00amMay 2022 11:09am Melatonin 3 mg YvoakiIocptpyjulyh3NBGHUxfnm at bedtime as needed for Ctcesgun555 30February 2022 1:00amJune 2022 10:12amAcetaminophen 500 mg Tablet Dcvzjqpjdlly3260HCPRSakqs 8 ghtkb19980Lfczxjsh 2022 1:00amApril 2022 3:42pmAmlodipine 10 mg XwaihkRzrdhdvzpshe60VXTBHjopm pvgcqvt1326Zufyulhl 2022 1:00amApril 2022 3:42pmOmeprazole 20 mg Capsule,Delayed Release(Dr/Ec)Vpynyobmvwax94OPICAckex9019Rwlsqdnb 2022 1:00amApril 2022 3:42pmOxycodone 5 mg IrhhnkYfxiycyjwbcx8PJRGLakqp 4 hours as needed for Pain Scale 6 - 33885Xueceauc 2022June 2022 10:12amCalcium Carbonate- Vitamin D3 (Oyster Shell Calcium-Vit D3) 500 mg-5 mcg (200 unit) Tablet Hatkhrrhvggl3NDIHETfeqd uzlyo4485OgjkcwyfMarch 23, 2022 1:00amMay 2022 11:07am Multivitamin With Folic Acid (Thera) 400 mcg YyoymcZwjjjnemjoae0FTMXRInyks9982 March 23, 2022 1:00amJune 2022 4:08pmFluconazole 100 mg Tablet Gnofyhzowwbk586HXQEAshiw hnsgyoe53Zebntdfk 1st, 2023 1:00amApril 2022 3:39pmSennosides-Docusate Sodium 8.6-50 mg BztwdwZxuhzyaxsuqu7ASWJUVyqwn8063 March 23, 2022 1:00amApril 2022 3:42pmSertraline 100 mg Tablet Fhglwtrdgmqe073JXUAHpvin at xgiekbn0130Xteredrl 2022 1:00amApril 2022 3:42pmDiphenhydramine Hcl 25 mg MrkdresIwrczfnxprcp64WFXXZ3W as needed for Mddsfzz8745Fjirngbr 2022 1:00amMay 2022 11:09amCarbamide Peroxide (Ear Drops (Carbamide Peroxide)) 6.5 % LefuvEviejfkowphl3TMOEWMGL-ROPTBhrzx592 March 23, 2022 1:00amApril 2022 3:42pmNystatin (Nystop) 100,000 unit/gram GaccxxQagqynuqdxwe2NUREEDRPYUJHWPpfiu times lcrbm231Znouphex 1st, 2023 1:00amApril 2022 3:40pmHydroxyzine Pamoate 25 mg WjttlvmNdrogkcsuxir55PTWY Q6H as needed for itching/synyie5532Nmstkpio 2022 1:00amJune 2022 10:12amSodium Chloride 0.9 % (Flush) (Bd Posiflush Normal Saline 0.9) Syringe Oqbcdyzoqiae82PRGS-TTDLCrguz ojgbb6Rtassywt 2022 1:00amApril 2022 3:41pmHeparin, Porcine (Pf) (Heparin Lockflush(Porcine)(Pf)) 100 unit/mL Syringe Yfatcgcqgmip553CVYXTO-CBJEToifi tpxzy0Dsdmzjgk 2022 1:00amApril 2022 3:39pmVancomycin - Pharmacy PqwgrhCgcglmyxaapr6xhSUURX as dnpvyr9Gxmgavws 2022 1:00amApril 2022 3:42pmVancomycin 1,000 mg Recon NukgMzdsbnqppkbp1CB XXY72Q5Cvydiobd 2022 1:00amApril 2022 3:42pmRivaroxaban (Xarelto) 10 mg njdoqtXhoqcckvjgux92EBLCLjull0262Sqhabfho 2022 1:00amApril 2022 3:41pmSennosides-Docusate Sodium 8.6-50 mg kvenevFaqqlerhvuxo5TTEIPYtpqp as needed for ConstipationApr2022 3:41pmMay 2022 11:07amSertraline 100 mg rpkcapOrdavhknckbq934MKAJAosni at bedtimeApr2022 3:41pmJune 2022 10:12amAcetaminophen 500 mg okihpvZjmchfqolaaq4771JTKHIsrmn 8 hours June 14, 2022 3:41pmJune 2022 10:12amAmlodipine 10 mg tablet Ekgrgmwasymy95RHLPFytpi morningApr2022 3:41pmJune 2022 10:12am Carbamide Peroxide (Ear Drops (Carbamide Peroxide)) 6.5 % dropsDiscontinued5 DROPSEAR-BOTHDaily as needed for Ear WaxApril 2022 3:41pmMay 2022 11:08amOmeprazole 20 mg capsule,delayed release(DR/EC)Jfblvqwgiaxf84IRACOjnaj morningApril 2022 3:41pmJun2022 10:12amAscorbic Acid (Vitamin C) (Vitamin C) 500 mg CgatayAcljmyynhpik111UEHLCossw daily with mealsMa2022 12:00amJun2022 10:12amFerrous Sulfate (Iron) 325 mg (65 mg iron) Tablet Crefovtnhwdy135UAVGVwtzl morningJuly 12, 2022 12:00amJun2022 10:12am Atorvastatin 20 mg lxwhzuQgyjonmoznnb84FRSRKiewz at bedtimeJuly 12, 2022 11:07amJun2022 10:12amPrednisone 10 mg MqrwmwMgaaikukvkja56SKXUSrhdrKmwa 2022 12:00amJuly 27, 2022 4:08pmPolyethylene Glycol 3350 (Healthylax) 17 gram Powder In MadihiLysfyzntrhgf88CBPAAwaee as needed for ConstipationJun2022 12:00amAugust 08, 2022 10:12amSennosides-Docusate Sodium 8.6-50 mg Tablet Shitxhpwhmah7WJYKJJqcxmHjoa 7th, 2023 12:00amJuly 27, 2022 4:08pmTramadol 50 mg RrtipcZzdwesglsjel53NFQSC9Q as needed for Pain Scale 1 - 5Jun2022 12:00am July 27, 2022 4:09pmOndansetron 4 mg Tablet,XgqeyjlquguitxSnumgkgbvgux3YMAR Three times daily as needed for NauseaJun2022 12:00amAugust 08, 2022 10:12amDoxycycline Hyclate 100 mg MxqvokYvibotdlxjll668IWQEKnalt dailyJun2022 12:002022 10:12amRivaroxaban (Xarelto) 10 mg Tablet Oatnefsfsopi31MNAANevrhEimw 2022 12:00amJuly 27, 2022 4:08pmPrednisone 10 mg pkyjblWdrsmusbrfzu30PKSIHxyxj morningJuly 27, 2022 4:08pmJun2022 10:12amSennosides-Docusate Sodium 8.6-50 mg yoylpxBxjywyzxmaql3OMAMQHlhau morningJun2022 4:08pmJun2022 10:12amRivaroxaban (Xarelto) 10 mg rqpcxvJyubrhoqcwcz24DEGYAxgkg morningJun2022 4:08pmJun2022 2:29pm Multivitamin With Folic Acid (Thera) 400 mcg gbnrduVhsfleejhdjl0DOLFACxask 2022 4:08pmJun2022 10:12amRivaroxaban (Xarelto) 10 mg dxxskoMnvksdadjppn67PENIQnlop zalcdxn7170Szam2022 2:29pmOct2022 11:45amAtorvastatin 40 mg NfeywjFpkmol23TRZCNeskj at dnqrylj2219Spgh2022 12:00amComplies with drug therapyMelatonin 3 mg EgovcwKkjktxwvypoe7GZJKIpwsr at bedtime as needed for Ywsbjrxg9436Fpkt2022 12:00amMay 2024 11:45am Amlodipine 5 mg ImvngzZgclxuswbsip0SXIGZtqyc pshipxy7452Ussd2022 12:00am November 22, 2022 11:44amAscorbic Acid (Vitamin C) (Vitamin C) 500 mg Tablet Deyfgvkjodyw937JHZMIobov daily with ecqwq0336Vjbj 19th, 2023 12:00amOctober 2022 11:44amPantoprazole 40 mg Tablet,Delayed Release (Dr/Ec)Yjuqrdzhoegi41GUYO Every ntjsuxd0379Azly2022 12:00amOctober 2022 11:45amOxycodone 5 mg SobtryCgdtfuywonek3UJSMM2Y as needed for Pain Scale 6 - 85232Qjfd2022November 22, 2022 11:43amFerrous Sulfate 324 mg (65 mg iron) Tablet,Delayed Release (Dr/Ec)Dfytqnwtmkyt737GCVOTfycl kjmjysu4461Clrc2022 12:00amMay 2024 11:45amMultivitamin With Folic Acid (Thera) 400 mcg TabletDiscontinued 1TABPOEvery aubogix0148Ifhk 19th, 2023 12:00amSeptember 2023 3:06pm Sennosides-Docusate Sodium 8.6-50 mg CeysamFtpsncercfta6HGPMCMcwcl ykfxgwz5746 August 08, 2022 12:00amOctober 2022 11:45amSertraline 100 mg TabletActive 100MGPODaily at vcwpsim1214Wnes 2022 12:00amComplies with drug therapy Acetaminophen 500 mg OjluzyOtancjujoglq923JSNFB5M as needed for Gith99330Tejf 2022 12:00amOctober 2022 11:44amHydroxyzine Pamoate 25 mg Capsule Jphittuffpdo88MINNM9J as needed for Sgcblh262Qcfb 2022 12:00amOctober 2022 11:45amNaproxen Sodium (Aleve) 220 mg GjautoDnvjaugnfufu548DFDQEkxhx daily as needed for PainOct2022 12:00amMarch 2023 2:19pmAmlodipine 5 mg nxqyhtOpctiywbwwxh5SKAHVdcmg morningOct2022 11:43amMay 2023 9:33amAcetaminophen 500 mg nqaoviIlcyimjjyszr6057IDCHS1R as needed for Pain October 2022 11:43amSeptember 2023 3:03pmAscorbic Acid (Vitamin C) (Vitamin C) 500 mg sfdcuvOimnhcqfdjob300EIEDObyloJxywyul 3rd, 2023 11:43amMay 2024 9:16amOmeprazole 20 mg Tablet,Delayed Release (Dr/Ec)Tmvolkmrmhyb85SR POEvery morningOct2022 12:00amSeptember 2024 2:25pmSennosides- Docusate Sodium 8.6-50 mg hmjiurShbsljsphibw6IANKWCbvjg morning as needed for ConstipationOct2022 11:45amSeptember 2023 3:08pmHydrocodone- Acetaminophen 5-325 mg tabletDiscontinued1 - 2TABPOEVERY 4-6 HOURS as needed for ggaw844Kgevxrp 2022March 2023 2:19pmDoxycycline Hyclate 100 mg uoxljlKpcgvdnzvuqn996WYCGXtfoa bubmy674Owzpjoe 2022 12:00amMarch 2023 2:19pmAmlodipine 5 mg yfjiqcFfwvjj7LDJHXdqcl morningMay 2023 9:32am Complies with drug therapyOmeprazole 20 mg tablet,delayed release (DR/EC) Nglhzzeimuno29WWWDOkrjf dailySeptember 2024 2:24pmSeptember 2024 2:56pmNaproxen Sodium (Aleve) 220 mg ocujbgZpqmlj439QJWAYdedb morningNovember 2023 1:00amComplies with drug therapyDocusate Sodium (Stool Softener) 50 mg pyvksyqKpkyqkhilpni28OMSOItals at bedtimeNovember 2023 1:00amMay 2024 11:45amLactobacillus Combination No.9 (Adult 50 Plus Probiotic) 4 billion cell totqlfyGnapjh7938TGP CELLSPOEvery morningNovember 2023 1:00amadminister with a mealComplies with drug therapyHydrocodone-Acetaminophen 5-325 mg tablet Discontinued1 - 2TABPOEVERY 4-6 HOURS as needed for oalc682Daidxcxm 2023June 25, 2024 11:45amDoxycycline Hyclate 100 mg zcjtvgAmwjndatceuw013LBIUZrxbq pudos171Okocurcx 2023 1:00amNovember 2023 12:01pmPolyethylene Glycol 3350 (Clearlax) 17 gram/dose bdahwxXvuxai12VIIRJwmet as needed for constipation September 23, 2024 12:00amComplies with drug therapyMelatonin 3 mg Tablet Sbvgfrzyatje2KPFRLiiun at bedtime as needed for InsomniaJanuary 2022 1:00am March 23, 2022 10:17amVancomycin 750 mg Recon SolnDiscontinued0.98BFSPR03D March 10, 2022 1:00amFebruary 2022 10:17amVancomycin - Pharmacy Dosing Qmmdkfsqamhp4raMBNavt as neededJanuary 2022 1:00amJanuary 2022 4:42pmPolyethylene Glycol 3350 (Miralax) 17 gram Powder In JlkvvxMewkkewfojhw35 GMPODaily as needed for ConstipationJanuary 2022 1:00amFebruary 2022 10:17amSennosides-Docusate Sodium 8.6-50 mg EjhbbnLrxocrgyqvuk3XCXTDXalthAnokksv 2022 1:00amFebruary 2022 10:17amTramadol 50 mg IouffwDaofrfuwvesf53NO POQ4H as needed for Pain Scale 1 - 5January 2022 1:00amFebruary 2022 10:17amAcetaminophen 500 mg QozhtvLxajupjboupo6391QDTAG5YNswnehf 2022 1:00amFebruary 2022 10:17amOndansetron 4 mg Tablet,Disintegrating Xvjbauhgwxwz1ATRXCjdru times daily as needed for NauseaJanuary 2022 1:00am March 23, 2022 10:17amOxycodone 5 mg HnlfefSctelqrgfcga8BEDMAkzlp 4 hours as needed for Pain Scale 6 - 10January 2022February 2022 10:17amCalcium Carbonate-Vitamin D3 (Oyster Shell Calcium-Vit D3) 500 mg-5 mcg (200 unit) BwlpyeIxmuvbeesbdo0FFNHKWbgjl dailyJanuary 2022 1:00amFebruary 2022 10:17amRivaroxaban (Xarelto) 10 mg FkgmboZcpetxfjmbpg15JQWSFhbqjVqlfxhv 2022 1:00amFebruary 2022 10:17amAcetaminophen (Non-Aspirin) 325 mg tablet Owrylnbkpxpr398JJHWDsntq 6 hours as needed for fever or painSeptember 2023 12:00amMay 2024 11:24amNaproxen (Naprosyn) 500 mg xrwgmmKizbthtmwgsg744AFCM Daily as needed for painSeptember 2023 12:00amNovember 2023 11:18am Tamsulosin 0.4 mg capsuleDiscontinued0.4MGPOEvery morningSeptember 2023 12:00amMay 2024 11:24amAspirin (Aspirin Childrens) 81 mg tablet,chewable Trpnkywawqhj81PNWZVjzsc at bedtimeSept2023 12:00amFebruary 2024 10:43amDiclofenac Sodium (Voltaren Arthritis Pain) 1 % urgKtbiskmwxvko5XMAUJDL Twice daily as needed for arthritisSept2023 12:00amNovember 2023 11:18amtopically twice daily PRN;Nitroglycerin 0.4 mg tablet, sublingualActive 0.7MISZPJIVRAPAU9O as needed for chest oukm58Kmdpaegde 5th, 2024 12:00amuntil response; do not exceed 3 doses per eventComplies with drug therapyTamsulosin 0.4 mg capsuleActive0.4MGPOTwice dailyMay 2024 11:22amComplies with drug therapyHydroxyzine Pamoate 25 mg capsuleDiscontinuedMGPOApril 2023 12:00am October 24, 2023 3:06pmFreeTextSi capsule at bedtime as needed Orally prn; Note: Source Status: Taking; Provider: Irma Sequeira ( ) Prednisone 5 mg gcniolAdwvrmqzocza7GPEJomnqi2352Utzue 2023 12:00amAugust 2023 8:19amTake 5 pills by mouth x2 days, take 4 pills by mouth x2 days, take 3 pills by mouth x2 days, take 2pills by mouth x2 days, take 1 pill by mouth x2 days.Diclofenac Sodium (Voltaren Arthritis Pain) 1 % gelDiscontinued0 TOPICALTwice vpqcx548Sahhf 2023 12:00amSept2023 3:09pmapply 1-2 grams to affected area twice fzcxvDkmrxfykftpi-Wzjvyqxt-Osvtvm tpwgxiLcjcqr5UOY PODailyMay 2023 12:00amComplies with drug therapyDoxycycline Hyclate 100 mg cyeckqfTxscupiwqddz175IKXXUqxkg qdmgw8116Uosqldre 27th, 2024 1:00amFebruary 2024 10:43amCpap (Continuous Positive Airway Pressure) unitDiscontinued0 .RouteFebruary 2024 1:00amFebruary 2024 10:46amAs directedCpap (Continuous Positive Airway Pressure) unitActive0.RouteFebruary 2024 10:46amAs directed DME Faith MedicalFerrous Sulfate 325 mg (65 mg iron) tablet Zolihvbhneau086PYCUTxhidLgflofpra 2024 12:00amOctober 2024 9:18am Furosemide 20 mg tohxmvAhbhxuuidpvr53GTKUQtlrkTjyfckwze 2024 12:00amOctober 2024 9:18amDutasteride 0.5 mg capsuleActive0.5MGPODailySeptember 2024 12:00amComplies with drug therapyFamotidine 40 mg oxhlduMssjvf67UWONXusay at bedtime as needed for heartburn/abd xhng3267Lxbnlckxe 2024 12:00amComplies with drug therapyOmeprazole 40 mg capsule,delayed release(DR/EC)Hbptha76HUXF Mcmaz3919Pdrrwlchi 2024 12:00amComplies with drug therapyDoxycycline Hyclate 100 mg capsuleDiscontinuedMGPOAugust 2023 12:00amSeptember 2023 3:05pmFurosemide 20 mg khooauZhpuzaizmzqe20CXTPZtlos morningAugust 2023 12:00amDecember 2023 5:52pmAcetaminophen (Tylenol Extra Strength) 500 mg lvttxeKgrous130WYWUNaklb 6 hours as needed for painMay 2024 12:00am Complies with drug therapyAspirin (Adult Low Dose Aspirin) 81 mg tablet,delayed release (DR/EC)Wmczoqmpclmb51NHKHCdcsxZcr 2024 12:00amMay 2024 8:36am Oxycodone 5 mg wlpiglUcwycauqynke2YOWHWebih 8 hours as neededMay 2024 12:00amMay 2024 8:40amCiprofloxacin Hcl 500 mg tabletDiscontinuedMGPO October 28, 2024 12:00amOctober 2024 9:18amPrednisone 5 mg tablet Wqdgvuufmuoj3BKZVmofgu593Swsmergzk 8th, 2025 12:00amOctober 2024 9:19am Take 4 pills by mouth x2 days, take 3 pills by mouth x2 days, take 2 pills by mouth x2 days, take 1pill by mouth x1 day. IV Medications Medication Contents Directions Start Date Gentamicin 455 mg Gentamicin, Sodium Chloride 0.9% 100 ml [0.9% Sodium Chloride 100 ml]222.75 mls/hr IV Q36H March 10, 2022 1:00am Immunizations Immunization Event Date Not Given Reason Dose Number [employer] Lot Number Vaccine Information Statement (VIS) Detail Administration Location COVID-19 mRNA, Comirnaty ([employer]) May 15 COVID-19 mRNA, Comirnaty ([employer])June 19OVID-19 ([place]) 12Y and olderJanuary OVID-19 ([place]) 12Y and olderMarch 2024Fluzone TIV High-Dose 65YR+December 01, 2019Fluzone TIV High-Dose 65YR+ January 12, 2021Fluzone TIV High-Dose 65YR+December 13, 2021Fluzone TIV High-Dose 65YR+April 23, 2024influenza, unspecified formulationNovember 2020influenza, unspecified formulationOctober neumococcal Conjugate Vaccine, 13 valentSeptember 2014Pneumonia Vaccine, UnspecifiedOctober 2003Pneumococcal Polysacc. Vaccine, 23 valentJanuary 2017Pneumococcal Polysacc. Vaccine, 23 valentFebruary 2017Quadrivalent InfluenzaSeptember 2022Tetanus, Diphtheria, Pertussis (Tdap)February 26, 2019 Medical Equipment Device Date Implanted Date Explanted Device Deta ils Orthopaedic bone screw, non-bioabsorbable, non-s terile July 31, 2024 JOEL: ()[id number] Issuing Agency: 1 Device Id: [id number] bone screw, non-bioabsorbable, non-sterile July 31, 2024UDI: ()[id number] Issuing Agency: [employer] Device Id: [id number] bone screw, non-bioabsorbable, non-sterile July 31, 2024UDI: ()[id number] Issuing Agency: [facility] Device Id: [id number] bone screw, non-bioabsorbable, non-sterile July 31, 2024UDI: ()[id number] Issuing Agency: [facility] Device Id: [id number] reverse shoulder prosthesis cupJune 2024UDI: [id number] Issuing Agency: [facility] Device Id: [id number] Expiration Date: 2027-07-15 Serial Number: [id number] shoulder humeral stem prosthesisJune 2024 JOEL: ()[id number] Issuing Agency: [facility] Device Id: [id number] Expiration Date: 2028-06-18 Serial Number: [id number] shoulder prosthesis headJune 2024UDI: ()[id number] Issuing Agency: [facility] Device Id: [id number] Expiration Date: 0242-32-93Vkbiqqotxzf bone screw, non-bioabsorbable, non-sterileJune 2024UDI: ()[id number] Issuing Agency: [facility] Device Id: [id number] shoulder prosthesis base plateJune 2024 JOEL: ()[id number] Issuing Agency: [facility] Device Id: [id number] Expiration Date: 2029-04-16 Serial Number: [id number] guide, bioabsorbable, animal-derivedOctober 2022UDI: +[id number] cement, non-medicatedJanuary 2022UDI: ()[id number] Issuing Agency: [facility] Device Id: [id number] Expiration Date: 2024-06-19 Lot Number: [id number] cement, non-medicatedJanuary 2022UDI: ()[id number] Issuing Agency: [facility] Device Id: [id number] Expiration Date: 2024-06-19 Lot Number: [id number] cement, non-medicatedJanuary 2022UDI: ()[id number] Issuing Agency: [facility] Device Id: [id number] Expiration Date: 2024-06-19 Lot Number: [id number] cement, non-medicatedJanuary 2022UDI: ([id number] Issuing Agency: [facility] Device Id: [id number] Expiration Date: 2024-06-19 Lot Number: [id number] cement, non-medicatedJune 2022UDI: (01)[id number] Issuing Agency: [facility] Device Id: [id number] Expiration Date: 2024-11-19 Lot Number: [id number] cement, non-medicatedJune 2022UDI: (01)[id number] Issuing Agency: [facility] Device Id: [id number] Expiration Date: 2024-11-19 Lot Number: [id number] cement, non-medicatedJune 2022UDI: (01)[id number] Issuing Agency: [facility] Device Id: [id number] Expiration Date: 2024-11-19 Lot Number: [id number] femur stem prosthesisJune 2022UDI: ([id number] Issuing Agency: [facility] Device Id: [id number] Expiration Date: 2028-11-19 Lot Number: [id number] femur stem prosthesisJune 2022UDI: ()[id number] Issuing Agency: [facility] Device Id: [id number] Expiration Date: 2028-11-19 Lot Number: [id number] insertJune 2022UDI: ()[id number] Issuing Agency: [facility] Device Id: [id number] Expiration Date: 2024-07-20 Lot Number: [id number] arthroplasty wedgeJune 2022UDI: ()[id number] Issuing Agency: [facility] Device Id: [id number] Expiration Date: 2029-08-19 Lot Number: [id number] arthroplasty wedgeJune 2022UDI: ()[id number] Issuing Agency: [facility] Device Id: [id number] Expiration Date: 2029-10-06 Lot Number: [id number] arthroplasty wedgeJune 2022UDI: ()[id number] Issuing Agency: [facility] Device Id: [id number] Expiration Date: 2029-03-22 Lot Number: [id number] arthroplasty wedgeJune 2022UDI: ()[id number] Issuing Agency: [facility] Device Id: [id number] Expiration Date: 2029-03-22 Lot Number: [id number] arthroplasty wedgeJune 2022UDI: ()[id number] Issuing Agency: [facility] Device Id: [id number] Expiration Date: 2030-07-10 Lot Number: [id number] arthroplasty wedgeJune 2022UDI: ()[id number] Issuing Agency: [facility] Device Id: [id number] Expiration Date: 2030-09-20 Lot Number: [id number] arthroplasty wedgeJune 2022UDI: ()[id number] Issuing Agency: [facility] Device Id: [id number] Expiration Date: 2030-05-28 Lot Number: [id number] arthroplasty wedgeJune 2022UDI: ()[id number] Issuing Agency: [facility] Device Id: [id number] Expiration Date: 2030-01-02 Lot Number: [id number] knee femur prosthesis, metallicJune 2022UDI: ()[id number] Issuing Agency: [facility] Device Id: [id number] Expiration Date: 2030-04-26 Lot Number: [id number] knee tibia prosthesis, metallicJune 2022UDI: ()[id number] Issuing Agency: [facility] Device Id: [id number] Expiration Date: 2031-08-03 Lot Number: [id number]/ligament bone anchor, non-bioabsorbableJune 2022 JOEL: ()[id number] Issuing Agency: [facility] Device Id: [id number] Expiration Date: 2025-10-20 Lot Number: [id number]/ligament bone anchor, non-bioabsorbableJune 2022 JOEL: ()[id number] Issuing Agency: [facility] Device Id: [id number] Expiration Date: 2026-11-19 Lot Number: [id number] knee femur prosthesisJanuary 2022June 2022UDI: ()[id number] Issuing Agency: [facility] Device Id: [id number] Expiration Date: 2030-05-17 Lot Number: [id number] insertJanuary 2022June 2022UDI: ()[id number] Issuing Agency: [facility] Device Id: [id number] Expiration Date: 2024-07-20 Lot Number: [id number] Procedures Procedure Date Performed Status XR shoulder RT min 2V* October 28, 2024 9:42a m completed XR shoulder RT min 2V* November 18, 2024 9:28 am completed US scrotum October 09, 2024 7:42am complet ed Relevant Diagnostic Tests and/or Laboratory Data Laboratory Results Test Collection Date/Time Result Date/Time Result Interpretation Reference Range Result Comment Performing Site Corrected White Blood Count November 07, 2024 1:23pm November 07, 2024 3:54pm 7.6 10*3/uL 4.1[facility] [id number] [address] [facility] 13872Otljabbmmsf WBC CountSeptember 2024 1:23pmSeptember 2024 3:54pm7.6 10*3/uL4.1-10.5F[facility] [id number] [address] [facility] 15709Mki Blood CountSept2024 1:23pmSeptember 2024 3:54pm5.10 10*6/uL3.90-5.60[facility] [id number] [address] [facility] 08200EknnzfppgmDnrcewxru 2024 1:23pmSeptember 2024 3:54pm15.1 g/dL13.0-17.0[facility] [id number] [address] [facility] 29237MtrgjhjbmqLqcbfkjyh 2024 1:23pmSeptember 2024 3:54pm46.3 %38.8-50.0[facility] [id number] [address] [facility] 03011Cyga Corpuscular VolumeSeptember 2024 1:23pmSeptember 2024 3:54pm90.8 fL83.5-101[facility] [id number] [address] [facility] 17512Rrxe Corpuscular HemoglobinSeptember 2024 1:23pmSeptember 2024 3:54pm29.6 pg27.5-35.2F[facility] [id number] [address] [facility] 72560Loaq Corpuscular Hemoglobin ConcentSeptember 2024 1:23pm November 07, 2024 3:54pm32.6 g/dL32.5-35.6F[facility] [id number] [address] [facility] 58080Sst Cell Distribution WidthSeptember 2024 1:23pmSept2024 3:54pm15.3 %Above high uatyfb53.0-14.8[facility] [id number] [address] [facility] 99697Hqfjlbbm CountSeptember 2024 1:23pmSept2024 3:72ep741 10*3/aF320-850ZgfecjppgW[facility] [id number] [address] [facility] 07390Lnin Platelet VolumeSeptember 2024 1:23pmSeptember 2024 3:54pm8.0 fL6.6-10.1F[facility] [id number] [address] [facility] 79316Tqzrhnnxjeh (%) (Auto)November 07, 2024 1:23pmSeptember 2024 3:54pm50.5 %.[facility] [id number] [address] [facility] 49855Bymabrzdmps (%) (Auto)November 07, 2024 1:23pmSeptember 2024 3:54pm38.7 %.[facility] [id number] [address] [facility] 71618Boqbgjqxh (%) (Auto)November 07, 2024 1:23pmSept2024 3:54pm9.1 %.[facility] [id number] [address] [facility] 67498Eunfmgzvgmt (%) (Auto)November 07, 2024 1:23pmSept2024 3:54pm1.2 %.[facility] [id number] [address] [facility] 57635Bwxqkcwok (%) (Auto)November 07, 2024 1:23pmSept2024 3:54pm0.5 %.[facility] [id number] [address] [facility] 77182Hfgewuknu RBC Relative Count (auto)November 07, 2024 1:23pm November 07, 2024 3:54pm0.0 /100{WBC}0-0.5F[facility] [id number] [address] [facility] 56488Cwtqpgkvpio # (Auto)November 07, 2024 1:23pmSept2024 3:54pm3.9 10*3/uL1.8-7.7FTr[facility] [id number] [address] [facility] 02495Bqcjmhjcqlf # (Auto)November 07, 2024 1:23pmSept2024 3:54pm3.0 10*3/uL1.00-4.8[facility] [id number] [address] [facility] 66312Kznimcjps # (Auto)November 07, 2024 1:23pmSept2024 3:54pm0.7 10*3/uL0.0-0.8[facility] [id number] [address] [facility] 99835Epmijwauurn # (Auto)November 07, 2024 1:23pmSept2024 3:54pm0.1 10*3/uL0.0-0.45[facility] [id number] [address] [facility] 82608Cyhglbvxc # (Auto)November 07, 2024 1:23pmSept2024 3:54pm0.0 10*3/uL0.0-0.2F[facility] [id number] [address] [place] [address] 79961Pobkwmdugmk Sedimentation RateSept2024 1:23pm November 07, 2024 4:26pm6 mm/hr0-19[facility] [id number] [address] [place] [address] 21938R-Iwrpq Quantitative (PE/DVT)November 07, 2024 1:23pm November 07, 2024 4:01xl668 ng/mLAbove high normal0-243The reference range for D-dimer is <243 ng/mL D-dimer units.D-dimer results must be used in conju nction with a clinicalpretest probability (PTP) assessment model for deep veinthrombosis (DVT) and pulmonary embolism (PE). Results <230ng/mL d-dimer units can be used as a negative predictor inpatients with low or moderate probability for DVT/PE.Results above the exclusion threshold of 230 ng/ml D- dimerunits for DVT/PE may indicate the need for furtherdiagnostic testing.D- Dimer can be increased in hospitalized patients due toco-morbid conditions.A hematocrit value greater than 55% may lead to inaccurate results in coagulation testing. Patients having hematocrit values >55% require a special collection tube for coagulation studies. Please contact the laboratory at [phone] for redraw instructions.[facility] [id number] [address] [place] [address] 33294Q-Gwiqpwxu Protein, QuantitativeSept2024 1:23pm November 07, 2024 4:05pm0.5 mg/dL0.0-0.5FTr[facility] [id number] [address] [place] [address] 73798 Diagnostic Imaging Reports Author Dae Frankel [facility] Street HospitalAuthoredAugust 2024 3:12pmReportDictated Date/TimeDictated ByStatusRadiology ReportAugust 2024 3:12pmMasuly Frankel II MDcompletedFHOLMES [facility] [place] [address] [place], [place] [id number] Ultrasound Report Signed Patient: Danyel Jung V MR#: [id number] : 1940 Acct:[id number] Age/Sex: 84 / M ADM Date: 5 Loc: Room: Type: [facility] Attending Dr: Amadeo Landis MD Ordering Provider: Amadeo Landis MD Date of Service: 10/09/24 US/US scrotum: N50.819 - Testicular pain, unspecified Copies to: Amadeo Landis MD~ EXAMINATION TYPE: US scrotum grayscale, color Doppler, waveform duplex analysis was performed. DATE OF EXAM ORDERED: 10/09/2024 8:20 AM HISTORY: Pain, swelling COMPARISON: NONE TECHNIQUE: Realtime imaging of the scrotum was performed. Mckeon scale, color Doppler and spectral Doppler imaging of the testicles was performed. FINDINGS: Testicles: Both testicles demonstrate homogeneous echotexture without intratesticular filling defect. Superior to the right testicle is a nonspecific partially calcified anechoic structure measuring 4 mm in greatest dimension which is of uncertain etiology. Right measurements: 4.8 x 2.5 x 2.7 cm Left measurements: 3.9 x 2.2 x 3.1 cm Epididymis: The bilateral epididymides demonstrate normal echogenicity without focal lesion. There is an anechoic cyst within the epididymal head bilaterally measuring 5 mm in greatest dimension on the right and 3 mm in greatest dimension on the left. Right measurements: 1.3 x 1.2 x 1.3 cm Left measurements: 0.8 x 1.2 x 0.7 cm Hydrocele: Bilateral hydroceles are noted. There is a mildly complex in nature. There is scrotal wall thickening measuring 6 mm in thickness. There is accompan charlie hyperemia. Doppler ultrasound of the testicles: Arterial and venous waveforms are seen within both testicles. No sonographic evidence of testicular ischemia. US/US scrotum IMPRESSION: 1. The testicles are normal in size and echogenicity. No intratesticular lesions. 2. No sonographic evidence of testicular ischemia. 3. Bilateral hydroceles are noted. There is a mildly complex in nature. 4. There is scrotal wall thickening measuring 6 mm in thickness. There is accompanying hyperemia. This may be secondary to cellulitis. 5. Epididymal head cysts are noted. 6. Superior to the right testicle is a nonspecific partially calcified anechoic structure measuring 4 mm in greatest dimension which is of uncertain etiology. Impression dictated by: Dae Frankel M.D. 10/09/2024 3:20 PM Dictation Location: [facility]24 Tech: Gayle Nino Transcribed By: [facility] 10/09/24 1520 Dictated By: Dae Frankel II, MD 10/09/24 1512 Signed By: <Electronically signed by Dea Frankel II, MD in OV> 10/09/24 15[address] HospitalAuthoredSeptember 2024 1:55pmReport Dictated Date/TimeDictated ByStatusRadiology ReportSeptember 2024 1:55pm Amarjit Nagel Jr [facility] [address] [place] [address] XRay Report Signed Patient: Danyel Jung V MR#: [id number] : 1940 Acct:[id number] Age/Sex: 84 / M ADM Date: 5 Loc: [facility] Room: Type: [facility] Attending Dr: Jalil Harding DO Copies to: Jalil Harding DO~ Ordering Provider: Jalil Harding DO Date of Service: 10/28/24 XR/XR shoulder RT min 2V*: Z96.611 - 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 XR/XR shoulder RT min 2V* IMPRESSION: NO HARDWARE COMPLICATION. Impression dictated by: Amarjit Nagel Jr., D.OSamanta 10/28/2024 1:56 PM Dictation Location: [facility]22 Transcribed By: [facility] 10/28/24 135 Dictated By: Amarjit Nagel Jr, DO 10/28/24 135 Signed By: <Electronically signed by Amarjit Nagel Jr, DO in OV> 10/28/24 1356 Author [facility]arjit Nagel [facility] 4:18pmReport Dictated Date/TimeDictated ByStatusRadiology ReportSeptember 2024 4:18pm Amarjit Nagel Jr [facility] [address] [place] [address] XRay Report Signed Patient: Danyel Jung V MR#: [id number] : 1940 Acct:[id number] Age/Sex: 84 / M ADM Date: 5 Loc: [facility] Room: Type: [facility] Attending Dr: Jalil Harding DO Copies to: Jalil Harding DO~ Ordering Provider: Jalil Harding DO Date of Service: 11/18/24 XR/XR shoulder RT min 2V*: Z96.611 - 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 Mild degenerative changes AC joint. XR/XR shoulder RT min 2V* IMPRESSION: NO HARDWARE COMPLICATION. Impression dictated by: Amarjit Nagel Jr., D.O. 11/18/2024 4:19 PM Dictation Location: [place] [address] Transcribed By: [facility] 11/18/24 1619 Dictated By: Amarjit Nagel Jr, DO 11/18/24 1618 Signed By: <Electronically signed by Amarjit Nagel Jr, DO in OV> 11/18/24 1619 Vital Signs Vital Reading Result Reference Range Collection Date/Time Weight 119.74 kg September 16, 2024 1:41pmBP Tvdsweiu087 mm[Hg]100-140July 2024 1:41pmBP Oltznaduh19 mm[Hg]60-100July 2024 1:75jpCbatud45 [in_i]October 07, 2024 11:16euJksfjc555.66 kgAugust 2024 11:50amHeart Rate60 /xej72-327Pocwik 2024 12:44pmRespiratory rate16 /djy34-84Dojvju 2024 12:44pmOxygen saturation by Pulse jdydtufr84 %95-100August 2024 12:44pmBP Xslglrqr435 mm[Hg]100-140August 2024 12:44pmBP Mylkpuqhv82 mm[Hg]60-100August 2024 12:56siXbrtql79 [in_i]October 24, 2024 2:03ejMmmdnc367.93 kgSept2024 2:21pmHeart Rate76 /gwn12-765Yhpkwobkh 4th, 2025 2:21pmBP Awxphjyq841 mm[Hg]100-140September 2024 2:21pmBP Ihsmgovjp11 mm[Hg]60-100September 2024 2:21pmBMI (Body Mass Index)36.2 kg/r5Snuultuhc2024 2:42moXutogy13 [in_i]December 03, 2024 9:90crLbtaqx117.57 kgOctober 2024 9:15amHeart Rate71 /ezs89-782Hsjlcpw 2024 9:15amBP Exyohocb170 mm[Hg]100-140October 2024 9:15amBP Cyvfqcudo69 mm[Hg]60-100October 2024 9:15amBMI (Body Mass Index)35.8 kg/l9Jgrwzni 2024 9:15am Advance Directives Advance Directive Response Recorded Date/ Time Advance Directives Yes July 01 2:11pm Insurance Providers Guarantor Danyel Jung V Address [address] [facility] [place] [address]Rsiiosl Info.Home Phone: Payer Policy Id Subscriber's Name Subscriber Id Effectiv e Date Expiration Date Medicare [id number] Danyel Erich V [id number] Medicare Rehab-IP Part [id number] Pachasa [id number] Encounters Encounter Location(s) Arrival/Admit Date Discharge/Depart Date Provider(s) Departed Physician/Prov ider Office Visit -[facility] [place] [facility] September 16, 2024 1:25pm September 16, 2024 2:09pm Amadeo Landis MD Departed Physician/Prov ider Office Visit -[facility] September 23, 2024 9:14am September 23, 2024 9:26am Jalil Harding , Non-patient / Non-visit -[facility] t 2024 11:36am Joseph Graham , CARRIEeparted Clinical-Ultrasound [facility] 2024 7:41amAugust 2024 7:42amThomas B Boby , CARRIEeparted Physician/Provider [facility] 2024 2:08pmSeptember 2024 2:57pmALEXIA Basseparted Physician/Provider [facility] 2024 9:29amSeptember 2024 10:53amYesenia Jaureguiartmagdy Clinical-XRay [facility]Sept2024 9:42amSeptember 2024 9:43amCynthia Jauregui Clinical-Lab [facility] 1:22pmSeptember 2024 1:23pmStephany Jauregui [facility] TherapySeptember 2024 9:00amSeptember 2024 5:00pmCynthia Jauregui Physician/Provider [facility] 9:11amSeptember 2024 10:05amCynthia Jauregui Clinical-XRay [facility] 2024 9:28amSeptember 2024 9:29amYesenia Jaureguiarted Physician/Provider Office Visit-[facility] December 03, 2024 9:14amOctober 2024 9:33amJeremy Marley APRN Recent Diagnosis Onset Date Admit Date Depression Unknown September 16, 2024 1:25pm Dysphasia Unknown September 16, 2024 1:25pm Encounter for subsequent [facility] wellness visit (AWV) in Medicare patient Unknown September 16, 2024 1:25pm Obesity Unknown September 16, 2024 1:25pm Status post reverse arthroplasty of shoulder Unk nown September 16, 2024 1:25pm Testicular pain Unknown September 16, 2024 1:25pm Primary osteoarthritis, right shoulder Unknown September 23, 2024 9:14am Right rotator cuff tear Unknown September 232024 9:14am Status post reverse arthroplasty of shoulder Unk nown September 23, 2024 9:14am GERD (gastroesophageal reflux disease) Unknown October 24, 2024 2:08pm Primary osteoarthritis, right shoulder Unknown October 28, 2024 9:29am Right rotator cuff tear Unknown 2024 9:29am Status post reverse arthroplasty of shoulder Unk nown October 28, 2024 9:29am Acromial fracture Unknown October 9:11am Primary osteoarthritis, right shoulder Unknown November 18, 2024 9:11am Right rotator cuff tear Unknown 2024 9:11am Status post reverse arthroplasty of shoulder Unk nown November 18, 2024 9:11am GERD (gastroesophageal reflux disease) Unknown December 03, 2024 9:14am Assessments Author Angelic Carbajal [facility] HospitalAuthoRUSTly 2024 2:16pm Patient was verbally informed of the use of an AI-based documentation tool during the encounter. Tool is approved by [facility] and configured for HIPAA-compliant use. No objections voiced. Plan of Treatment Author Amadeo Landis [facility] 2024 5:29pmPatient presents with significant symptoms including difficulty swallowing, choking on foods, and frequent reflux. - Plan: Refer for upper endoscopy (EGD) to evaluate esophagus and stomach. Patient reports bilateral testicular enlargement with associated soreness. - Plan: Schedule ultrasound of testicles to rule out any pathology. Patient recovering well from recent shoulder surgery performed by Dr. Harding. - Plan: Continue with current post-operative care and follow-up as scheduled. Patient acknowledges issues with weight and difficulty in managing diet. - Plan: Encourage gradual increase in physical activity as tolerated post- surgery. Consider referral to wire tester if patient is interested in dietary guidance. Patient acknowledges issues with weight and difficulty in managing diet. - Plan: Encourage gradual increase in physical activity as tolerated post- surgery. Consider referral to wire tester if patient is interested in dietary guidance. Personalized healthcare advice was given to Danyel. General topics regarding health education were discussed in detail. All preventative issues were discussed including remaining a nonsmoker, colorectal screening, the importance of proper sleep for brain health maintenance, maintaining a heart-healthy balanced diet, recognizing and addressing signs of anxiety and depression, maintaining positive relationships with family and friends. The exam was performed by Dr. Landis. Author Lena Montoya [facility] 10:03amImages were reviewed in detail with the patient and company. Orthopedic hardware remains in appropriate position however he has sustained a stress fracture of the acromion. I anticipate he will continue to heal therefore we will continue to treat this conservatively. Advised he return to wearing the sling. He can come out of the sling while at rest and to work on pendulums and elbow range of motion. He should stop formal therapy at this time. We will restart therapy once the fracture heals more. He can continue to take oral anti inflammatories for pain. He will follow up in 4 weeks with repeat xrays. Author Jeremy Marley [facility] 20[facility] 4:47pm- Order omeprazole 40 mg daily for treatment of GERD. Patient advised to use as needed Pepcid for breakthrough. 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 Anti-reflux precautions discussed: ?? Loss weight ?? Elevate head of bed 4-6 inches when sleeping ?? Avoid eating within 3 hours before bedtime. ?? Maintain upright posture during and after eating. ?? Avoid clothing that is tight in the abdominal area. ?? Minimize narcotics ?? Avoid foods that make symptoms worse (examples include coffee, chocolate, alcohol, peppermint, and fatty foods) . Eat 5-6 small meals throughout the day instead of 2-3 large meals. ?? Do not use tobacco products ?? Minimize alcohol use ?? Avoid lying down for 3 hours after a meal Follow-up office visit in 6 weeks to evaluate efficacy of omeprazole 40 mg daily for treatment of GERD. Will plan to escalate PPI therapy if patient continues to experience GERD symptoms while on above-mentioned regimen. 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 Author [facility] 2024 9:24amInstructed to continue with formal physical therapy and progress as directed by protocol. Encouraged to continue to work on motion exercises. Instructed to call with any questions or concerns. Post-operative physical therapy protocol: reverse shoulder arthroplasty Weightbearing: progress weightbearing following the protocol, no lifting greater then 5 lbs. Patient will follow-up 8 weeks with xray Note scribed by THOR Pulliam, reviewed and amended by myself Jalil Harding D.O. Author Jalil Harding [facility] HospitalAuthoredSeptember 2024 1:18pmImages were reviewed in detail with the patient. Advised he likely pushed it too far during therapy. Chances of infection are possible however given the injury during physical therapy it is likely traumatic. We will continue to treat this conservatively. We will send in a 7 day steroid taper. Advised he stop taking anti inflammatories while on the steroid. He should stop going to therapy for 1 week. He can return to therapy and taking oral anti inflammatories when the steroid taper is completed. He will follow up in 4 weeks for reevaluation. Future Tests Future scheduled test information is unavailable Pending Tests Pending diagnostic test information is unavailable Future Visits Future appointment information is unavailable Referrals to Other Providers Referral information is unavailable Future Procedures Procedure Name Ordered Date Scheduled Date Discharge Order October 07, 2024 12:15pm October 07, 2024 12:15pm Future Medications Future medication information is unavailable Patient Instructions Instruction Admit Date [facility] Esophagitis Discha rge Instructions Know your [facility] 2024 11:36am
--- OUTSIDE RECORDS SUMMARY | 2024-12-04 09:00 | XMS_ITS | Encounter Summary ---
Author Organization [facility] Address [address] [place] [address] Phone Care Team Providers Care Glove Examiner Name Role Phone Amadeo Landis MD Primary Care Provider [phone] Reason for Referral * Consultation (Routine) - AuthorizedSpecialtyDiagnoses / ProceduresReferred By ContactReferred To ContactCardiology Diagnoses Essential hypertension Procedures Follow Up In Cardiology Hayder Patino DO 703 [facility] 2, [address] [address] Phone: tel: fax: Briana Pretty, DRY DRUG WORKER-RESEARCH ENVIRONMENTAL ENGINEER 703 [facility] 2, [address] [address] Phone: tel: fax: Referral IDStatusReasonStart DateExpiration DateVisits RequestedVisits [id number]/15/202510/15/202611 Reason for Visit * ReasonCommentsAnnual Exam1 year, coronary artery disease * Consultation (Routine) - AuthorizedSpecialtyDiagnoses / ProceduresReferred By ContactReferred To ContactCardiology Diagnoses Coronary artery disease involving [place] coronary artery of [place] heart without angina pectoris Procedures Follow Up In Cardiology Hayder Patino DO 703 [facility] [address], [address] [address] Phone: tel: fax: SukumarHayder yun, DO 703 [facility] 2, [address] [place] [address] Phone: tel: fax: Referral IDStatusReasonStart DateExpiration DateVisits RequestedVisits [id number]/8/202410/8/202511 Encounter Details DateTypeDepartmentCare Team (Latest Contact Info)Pwpvfghvagg53/15/2025 [address] [address] [phone] Hayder Patino, DO 703 [facility] [address], [address] [address] Coronary artery disease involving [place] coronary artery of [place] heart without angina pectoris; Essential hypertension; Mixed hyperlipidemia; MCCARTHY (dyspnea on exertion); BMI 36.0-36.9,adult; Former tobacco use Discharge Disposition: Home Social History Tobacco UseTypesPacks/DayYears UsedDateSmoking Tobacco: FormerPipeSmokeless Tobacco: NeverAlcohol UseStandard Drinks/WeekCommentsYes0 (1 standard drink = 0.6 oz pure alcohol)occasionallySex and Gender InformationValueDate RecordedSex Assigned at BirthNot on fileLegal YqgHddg10/25/2022 11:38 AM ESTGender Identity Not on fileSexual OrientationNot on filedocumented as of this encounter Last Filed Vital Signs Vital SignReadingTime TakenCommentsBlood Sueelrjw710/ 9:17 AM EDT Awvhg383712/04/2024 9:17 AM EDTTemperature--Respiratory Rate--Oxygen Saturation-- Inhaled Oxygen Concentration--Lcqded231 kg (263 lb)12/04/2024 9:17 AM EDTHeight 180.3 cm (5' 11 )12/04/2024 9:17 AM EDTBody Mass Index36.6812/04/2024 9:17 AM EDTdocumented in this encounter Functional Status * BPAnswerDate of OdduqojnfrIlstzi567/ 9:17 AM Cheikh Fierro MA * PulseAnswerDate of LwyvuxpluuEkuwpw1040/15/2025 9:17 AM Cheikh Fierro MA * Communicable Disease ScreeningQuestionAnswerDate of AssessmentAuthorDo you have any of the following new or worsening symptoms?None of these12/04/2024 9:07 AM Maye Dougherty documented as of this encounter Patient Instructions [...] through Care Everywhere. * Heart Healthy Diet (Lao) documented in this encounter Progress Notes * Hayder Patino, - 12/04/2024 9:00 AM EDT Chief Complaint [...] [address] capsule 1 capsule, Daily (30) sertraline (ZOLOFT) 100 mg, Daily tamsulosin (Flomax) 0.4 mg 24 hr capsule 1 capsule, Nightly Vitamin C 500 mg, 2 times daily (morning and late afternoon) Assessment/Plan 1. Coronary artery disease involving [place] coronary artery of [place] heart without angina pectorisFollow Up In Cardiology 2. Essential hypertension 3. Mixed hyperlipidemia 4. MCCARTHY (dyspnea on exertion) 5. BMI 36.0-36.9,adult 6. Former tobacco use Scribe Attestation By signing my name below, Andreia Rodas LPN , Scribe attest that this documentation has been prepared [...] documented in this encounter Plan of Treatment DateTypeDepartmentCare Team (Latest Contact Info)Pxfxgorjkau77/26/2026 [address] 703 [facility] [address] [place] [phone] Briana Pretty, DRY DRUG WORKER-RESEARCH ENVIRONMENTAL ENGINEER 703 [facility] 2, [address] [place] [address] documented as of this encounter Visit Diagnoses Diagnosis Coronary artery disease involving [place] coronary artery of [place] heart without angina pectoris Essential hypertension Unspecified essential hypertension Mixed hyperlipidemia MCCARTHY (dyspnea on exertion) Other dyspnea and respiratory abnormality BMI 36.0-36.9,adult Former tobacco use documented in this encounter Additional Health Concerns AssessmentNoted TimeA fall risk assessment has been completed for the patient 12/04/2024 9:17 AM EDTdocumented as of this encounter Care Teams Team MemberRelationshipSpecialtyStart DateEnd Date Amadeo Landis MD [address] [place] [address] PCP - GeneralInternal Medicine08/18/23documented as of this encounter
[2024-12-05 13:02] VITALS: BP 147/75; PULSE 68; TEMP 36.4; O2SAT 100; BMI 37.0
[2024-12-12] VITALS (19 sets, daily range): BP systolic 118–172; BP diastolic 51–92; PULSE 57–70; TEMP 36.1–36.8; O2SAT 92–100; BMI 36.4
--- OUTSIDE RECORDS SUMMARY | 2024-12-12 11:09 | XMS_ITS | Clinical Summary ---
Author Organization [facility] Address [address] [place], [place] [id number] Care Team Providers Care Pearl Maker Name Role Phone Amadeo Landis MD Primary Care Provide r Allergies Active AllergyReactionsCriticalityNoted AdhvZmuyvcvpXsbyyxjeebiCqczj66/11/2011 Medications MedicationSigDispense QuantityRefillsLast FilledStart DateEnd DateStatus omeprazole 20 mg ORAL capsule Take 20 mg by mouth once daily.Active atorvastatin (LIPITOR) 40 mg tablet Take 40 mg by mouth once daily.Active amLODIPine (NORVASC) 5 mg tablet Take 5 mg by mouth once daily.Active NAPROXEN SODIUM (ALEVE ORAL) Take by mouth. Take 2 tablets every morningActive tiZANidine (ZANAFLEX) 4 mg tablet Take 1 tablet by mouth at bedtime as needed (muscle relaxation). 30 tablet Active Active Problems ProblemNoted DateDiagnosed DateLumbar fmbfwhjkgqyyd73/01/2017 Overview (09/20/2016): Added automatically from request for surgery [id number] Essential unfllchvmijl53/31/2017Gastroesophageal reflux coxyrpv0409/19/2016 Radiculopathy, lumbar ndlqkd4109/19/2016Annular tear of lumbar disc09/19/2016 Overview (09/19/2016): Added automatically from request for surgery [id number] DDD (degenerative disc disease), efizfk1708/04/2016Suprapubic pain08/03/2016 Testicular pain08/02/2016Other anterior corneal dystrophies - Both Eyes 11/19/2013Lens replaced by other means - Both Eyes11/19/2013Strabismic amblyopia - Left Eye11/19/2013Senile cataract, msslyawejip36/24/2011 Encounters DateTypeDepartmentCare VwfqYmxwxhdzrpd07/21/2025Lab Requisition [facility] [address] [place] [address] Keith Farnsworth MD Person encountering health services to consult on behalf of another personfrom Last 3 Months Immunizations ImmunizationAdministration DatesNext Dueinfluenza vaccine, unspecified cucsnjwycpq41/17/2012 Family History Medical HistoryRelationCommentsCoronary Artery DiseaseFatherRelationStatus CommentsFatherDeceasedMotherDeceased Social History Tobacco UseTypesPacks/DayYears UsedDateSmoking Tobacco: NeverAlcohol UseStandard Drinks/WeekCommentsNo0 (1 standard drink = 0.6 oz pure alcohol)Sex and Gender InformationValueDate RecordedSex Assigned at BirthNot on fileLegal SexMale 01/22/2012 10:12 AM ESTGender IdentityNot on fileSexual OrientationNot on file Last Filed Vital Signs Vital SignReadingTime TakenCommentsBlood Vxbkwfeo900/7208 2:10 PM EDT Qzxtm530710/19/2016 2:10 PM WEAMheoqcbogxf34.4 ??C (97.5 ??F)10/19/2016 12:56 PM EDTRespiratory Gsso005110/19/2016 2:10 PM EDTOxygen Rxszhiauwd11%10/19/2016 2:10 PM EDTInhaled Oxygen Concentration--Bbkblm752.2 kg (232 lb)09/19/2016 8:13 AM IXVZabaku507.9 cm (6')09/19/2016 8:13 AM EDTBody Mass Index31.4607 8:13 AM EDT Plan of Treatment Health MaintenanceDue DateLast DoneCommentsAnxiety Imeoprbue61/11/1958Depression Lxehscwms28/11/1958DTaP,Tdap,Td Vaccine (1 - Tdap)08/30/1958Diabetes Screening 08/30/1984Pneumococcal Vaccine: 50+ (1 of 1 - PCV)08/30/1989hingrix Vaccine (1 of 2)08/30/1989RSV Vaccine (1 - 1-dose 75+ series)08/30/2014dvance Directive Rhydiyxxip82/01/2025ovid-19 Vaccine (2024- season)2024Influenza Vaccine (#1) Medical Devices ImplantedTypeAreaManufacturerDevice IdentifierShelf Expiration DateModel / Serial / LotLens Iol +25.0 Karmen Acrsf Iq - [id number] [facility] - Lens [facility] YPFYMOAC34/31/[id number] 25.0 / [id number] / [id number] Iol +25 Karmen +1.5 Cyl 1 - [id number] Implanted:Qty[facility] Eye - Lens[facility] [facility] SCTOUDDR99/31/[id number] 25.0 / [id number] / Procedures Procedure NamePriorityDate/TimeAssociated DiagnosisCommentsSURGICAL PATHOLOGY REFERENCE LAB PVGMWMINurwbzs39/21/2025 8:05 AM EDT Person encountering health services to consult on behalf of another person from Last 3 Months Results * SURGICAL PATHOLOGY REFERENCE LAB CONSULT (10/10/2024 8:05 AM EDT)Component ValueRef RangeTest MethodAnalysis TimePerformed AtPathologist SignatureCase ReportSurgical Pathology Report ? Case: [id number] ? Authorizing Provider: ??Keith Farnsworth MD ?Collected: ? 10/10/2024 08:05 AM ? Ordering Location: ? [facility] ?Received: ?10/10/2024 08:05 AM ? [facility] ? Pathologist: ? Gisselle Pettit MD ? Specimen: ?Block(s) and/or Slide(s), 4 SLIDES [id number] ? 10/11/2024 11:24 AM [facility] LABFINAL DIAGNOSISEsophagus, biopsy (A1): - Gastric type mucosa with intestinal metaplasia, negative for dysplasia. - See comment.10/11/2024 11:24 AM [facility] at 1124 EDTDiagnosis CommentThank you for allowing us the opportunity to review this case in consultation representing the esophageal biopsy from this 84-year-old male patient. The current [place] [employer] guidelines require an endoscopic abnormality that extends at least 1 cm proximal to the gastroesophageal junction in addition to a histologic finding of intestinal metaplasia in order to establish a diagnosis of Razo???s esophagus. Clinical and endoscopic correlation is suggested. There is no evidence of dysplasia in this biopsy. Thank you for sending this case in consultation. Please do not hesitate to contact us at [phone] with questions or if additional follow-up information becomes available. This case was reviewed in conjunction with the GI pathology fellow, Amita Espinal MD.10/11/2024 11:24 AM [facility] LABClinical HistoryCONSULT NMWGKFGO44/22/2025 11:24 AM [facility] LABPerforming LabDiagnostic interpretation performed at: [facility], [address] [facility], [place] [address] CLIA# [id number] Patient Service Coordinator: Jose Palencia MD10/11/2024 11:24 AM [facility] LABDisclaimerLaboratory Developed Test (LDT) Disclaimer: Performance characteristics of immunohistochemical, immunofluorescent, and chromogenic in-situ hybridization tests have been determined by the performing laboratory within [facility]'s [facility] Pathology and Laboratory Medicine Department ([facility], [facility], [facility], [facility], [facility], [facility], or [facility]) in a manner consistent with CLIA requirements. One or more of these tests may not have been cleared or approved by the FDA. [facility] is regulated under CLIA as qualified to perform high- complexity testing. These tests are used for clinical purposes. These should not be regarded asinvestigational or for research. Positive and negative controls stain appropriately.10/11/2024 11:24 AM [facility] Specimen (Source)Anatomical Location / LateralityCollection Method / Volume Collection TimeReceived TimeBlocks or SlidesPARAFFIN EMBEDDED TISSUE BLOCK SPECIMEN / Cbnwcbj6810/10/2024 8:05 AM EDT10/10/2024 8:05 AM EDT Narrative Authorizing ProviderResult TypeResult StatusYan Farnsworth MDSURGICAL PATHOLOGYFinal ResultPerforming OrganizationAddressCity/State/ZIP CodePhone Number [facility] [place] [address], from Last 3 Months Insurance Care Teams Team MemberRelationshipSpecialtyStart DateEnd Date Amadeo Landis MD [address] [place] [phone] [facility]08/17/10
--- OUTSIDE RECORDS SUMMARY | 2024-12-12 11:09 | XMS_ITS | Clinical Summary ---
Author Organization [facility] Address [address] [place] [address] Phone Care Team Providers Care Fabrication Technician Name Role Phone Amadeo Landis MD Primary Care Provider [phone] Allergies Active AllergyReactionsCriticalityNoted XtmzJmypzskxSoseoqcceowRuapy61/13/2011 Medications MedicationSigDispense QuantityRefillsLast FilledStart DateEnd DateStatus Vitamin C 500 mg tablet Take 1 tablet (500 mg) by mouth 2 times daily (morning and late afternoon). 09/29/2022ctive melatonin 3 mg tablet 1 tablet (3 mg) once daily at bedtime.08/08/2022ctive sertraline (Zoloft) 100 mg tablet Take 1 tablet (100 mg) by mouth once daily.08/08/2022ctive atorvastatin (Lipitor) 40 mg tablet Take 1 tablet (40 mg) by mouth once daily at bedtime.08/08/2022ctive acetaminophen (Tylenol) 500 mg tablet 2 tablets (1,000 mg) once daily.11/22/2022ctive multivit-min/ferrous fumarate (MULTI VITAMIN ORAL) Take 1 tablet by mouth once daily.Active naproxen sodium (Aleve) 220 mg capsule Take 1 tablet by mouth 2 times a day.Active furosemide (Lasix) 20 mg tablet Indications:Shortness of breathTake 1 tablet (20 mg) by mouth once daily. 90 tablet ctive tamsulosin (Flomax) 0.4 mg 24 hr capsule Take 1 capsule (0.4 mg) by mouth once daily at bedtime.10/04/2023ctive dutasteride (Avodart) 0.5 mg capsule Take 1 capsule (0.5 mg) by mouth once daily./ctive amLODIPine (Norvasc) 5 mg tablet Take 1 tablet (5 mg) by mouth once daily.Active naproxen (Naprosyn) 250 mg tablet Take 2 tablets (500 mg) by mouth 2 times daily (morning and late afternoon). Active omeprazole (PriLOSEC) [address] capsule Take 1 capsule (40 mg) by mouth early in the morning..5Active ferrous sulfate 324 mg (65 mg elemental iron) EC tablet (delayed release) 1 tablet (65 mg) once daily./Discontinued(Med List Cleanup) aspirin 81 mg EC tablet Take 1 tablet (81 mg) by mouth once daily.12/04/2024Discontinued(Med List Cleanup) Active Problems ProblemNoted DateDiagnosed DateMixed pcjiujwigxlzni20/08/2024AD (coronary artery disease)11/28/2023Essential jtiaaeuhsvja10/08/2024Former tobacco use 11/28/2023bnormal EKG008/18/2023OE (dyspnea on exertion)08/18/2023MI 36.0-36.9,adult08/18/2023 Encounters DateTypeDepartmentCare DptlAfhepuiahky33/15/2025 9:00 AM EDTOffice Visit [facility] [address] [address] Hayder Patino, Coronary artery disease involving [place] coronary artery of [place] heart without angina pectoris; Essential hypertension; Mixed hyperlipidemia; MCCARTHY (dyspnea on exertion); BMI 36.0-36.9,adult; Former tobacco use Discharge Disposition: Home12/04/20248413Dvvxqz36/18/2025Scanned Document [facility] [address] [place] [address] Scanning, Generic Provider from Last 3 Months Family History Medical HistoryRelationNameCommentsCongenital heart diseaseBrotherHeart attack FatherCardiac DisorderMotherRelationNameStatusCommentsBrotherFatherMother Social History Tobacco UseTypesPacks/DayYears UsedDateSmoking Tobacco: FormerPipeSmokeless Tobacco: NeverAlcohol UseStandard Drinks/WeekCommentsYes0 (1 standard drink = 0.6 oz pure alcohol)occasionallySex and Gender InformationValueDate RecordedSex Assigned at BirthNot on fileLegal QwlEtxy51/25/2022 11:38 AM ESTGender Identity Not on fileSexual OrientationNot on file Last Filed Vital Signs Vital SignReadingTime TakenCommentsBlood Odurxakc924/6612/04/2024 9:17 AM EDT Esncy104812/04/2024 9:17 AM EDTTemperature--Respiratory Rate--Oxygen Saturation-- Inhaled Oxygen Concentration--Xelhpf588 kg (263 lb)12/04/2024 9:17 AM EDTHeight 180.3 cm (5' 11 )12/04/2024 9:17 AM EDTBody Mass Index36.6812/04/2024 9:17 AM EDT Plan of Treatment DateTypeDepartmentCare Team (Latest Contact Info)Eaflvdlakhb95/26/2026 9:00 AM EDTOffice Visit [facility] [address] [facility] [address] [place] [address] Briana Pretty, SSIS ETL DEVELOPER-TRANSFER MACHINE OPERATOR [address] [facility] [address] [place] [address] Health MaintenanceDue DateLast DoneCommentsLipid Panel1939Medicare Annual Wellness Visit (AWV)1939RSV High Risk: (Elderly (60+) or Population) (1 - 1-dose 75+ series)08/30/2014Zoster Vaccines (2 of 3)05/07/2015 03/12/2015Influenza Vaccine (#1)5004/23/2024, 11/17/2022, 12/13/2021, Additional history existsCOVID-19 Vaccine (3 - 2024- season)2024 04/23/2024, 4DTaP/Tdap/Td Vaccines (3 - Td or Tdap)02/26/2029 02/26/2019, 09/20/2009Pneumococcal CgzoimmVrycmbwck12/16/2018, 02/20/2017, 11/12/2014, Additional history existsIrritable Bowel SyndromeDiscontinued 05/11/2021HIB VaccinesAged OutNo longer eligible based on patient's age to complete this topicHPV VaccinesAged OutNo longer eligible based on patient's age to complete this topicHepatitis A VaccinesAged OutNo longer eligible based on patient's age to complete this topicHepatitis B VaccinesAged OutNo longer eligible based on patient's age to complete this topicIPV VaccinesAged OutNo longer eligible based on patient's age to complete this topicMeningococcal VaccineAged OutNo longer eligible based on patient's age to complete this topic Rotavirus VaccinesAged OutNo longer eligible based on patient's age to complete this topic Insurance Care Teams Team MemberRelationshipSpecialtyStart DateEnd Date Amadeo Landis MD [address] [place] [phone] PCP - GeneralInternal Medicine08/18/23
--- OUTSIDE RECORDS SUMMARY | 2024-12-12 11:09 | XMS_ITS | Encounter Summary ---
Author Organization [facility] Address [address] [place] [address] Phone Care Team Providers Care Food Products Sales Representative Name Role Phone Amadeo Landis MD Primary Care Provider [phone] Encounter Details DateTypeDepartmentCare Team (Latest Contact Info)Qbocdxzdaxt50/15/2025Travel Social History Tobacco UseTypesPacks/DayYears UsedDateSmoking Tobacco: FormerPipeSmokeless Tobacco: NeverAlcohol UseStandard Drinks/WeekCommentsYes0 (1 standard drink = 0.6 oz pure alcohol)occasionallySex and Gender InformationValueDate RecordedSex Assigned at BirthNot on fileLegal OxuMkwr32/25/2022 11:38 AM ESTGender Identity Not on fileSexual OrientationNot on filedocumented as of this encounter Functional Status * BPAnswerDate of UwhnmwwiupUptfyy888/6612/04/2024 9:17 AM Cheikh Fierro MA * PulseAnswerDate of YmqvoezjfuDhzlgx2403/15/2025 9:17 AM Cheikh Fierro MA * Communicable Disease ScreeningQuestionAnswerDate of AssessmentAuthorDo you have any of the following new or worsening symptoms?None of these12/04/2024 9:07 AM Maye Dougherty documented as of this encounter Plan of Treatment DateTypeDepartmentCare Team (Latest Contact Info)Zfecqdobqxh51/26/2026 9:00 AM EDTOffice Visit [place] [id number] [address] [address] Briaan Pretty, NUCLEAR EQUIPMENT TEST ENGINEER-ASSOCIATE APPLICATION DEVELOPER [address] [facility] [address] [place] [address] documented as of this encounter Visit Diagnoses Not on filedocumented in this encounter Additional Health Concerns AssessmentNoted TimeA fall risk assessment has been completed for the patient 12/04/2024 9:17 AM EDTdocumented as of this encounter Care Teams Team MemberRelationshipSpecialtyStart DateEnd Date Amadeo Landis MD [address] [place] [phone] PCP - GeneralInternal Medicine08/18/23documented as of this encounter
--- OUTSIDE RECORDS SUMMARY | 2024-12-12 11:09 | XMS_ITS | Clinical Summary ---
Author Organization [facility] Address [address] [facility] [place] [address] Care Team Providers Care Peoplesoft Name Role Phone Unavailable Primary Care Provider Unavailabl e Social History Tobacco UseTypesPacks/DayYears UsedDateSmoking Tobacco: Never AssessedSex and Gender InformationValueDate RecordedSex Assigned at BirthNot on fileLegal Sex Male05/04/2022 7:10 PM EDTGender IdentityNot on fileSexual OrientationNot on file Last Filed Vital Signs Vital SignReadingTime TakenCommentsBlood Ogfaqwgy907/70005/11/2021 12:00 PM EDT Pulse--Temperature--Respiratory Rate--Oxygen Saturation--Inhaled Oxygen Concentration--Oqmbsl525 kg (245 lb)06/04/2021 12:00 PM RESMetsnj656.3 cm (5' 11 )05/11/2021 12:00 PM EDTBody Mass Index34.17005/11/2021 12:00 PM EDT Plan of Treatment Not on file Insurance * Guarantor: Danyel Jung VAccount TypeRelation to PatientDate of BirthPhone Billing AddressPersonal/PeqfydEhtz50/11/1941 [address] [place] [address]
[2024-12-12] MEDS: LEVOFLOXACIN 500 MG/100 ML-D5W PREMIX 100 MG IV (12:45)
--- NOTE | 2024-12-12 14:02 | P.URON_ITS ---
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 Cystoscopy. 2. Transurethral resection of the prostate. Anesthesia: GETA Primary Surgeon: Martin Lindsay Complications: None Estimated blood loss (mL): 5 Findings: Bilobar obstruction of the prostate. Specimens: Prostate chips. Drains: 22 Trinidadian three-way coud? Yañez catheter in the bladder taped to traction and CBI Indications for Procedures: This gentleman has BPH with LUTS that is refractory to medications. He is desirous for TURP. He has signed an informed consent after risks were explained. Some of these risks include bleeding, infection, anesthesia, retrograde ejaculation, urinary incontinence both temporary and permanent, erectile dysfunction and the possible need for further operations to name a few. Detailed description of Procedure: The patient was brought to the operating room and placed on the operating room table in the supine position. SCDs were placed on the lower extremities and turned on and functioning during the entire case. Timeout was done by all parties in the room. We all agreed upon the patient's identification and the planned procedures for this patient. Genn. anesthesia was then administered. The patient was then repositioned into the modified dorsal lithotomy position. All pressure points were satisfactorily padded. Genitalia were sterilely prepped and draped in usual fashion. I started by passing a 26 Trin[place] Olympus resectoscope with a standard bipolar loop electrode per urethra and into the bladder. The ureteral orifices were identified and marked with a loop electrode. I then resected the median lobe down to the bladder neck level. I then resected posteriorly from the bladder neck to the veru. The left lateral lobe was then taken down from the bladder neck to the veru level. The right lateral lobe and anterior tissue were then similarly taken down. The apex was carefully opened up. The resection bed was coagulated. The Elick was used to get all the prostate chips out from the bladder and these were sent for permanent sections. With the scope at the apex, the prostatic urethra and bladder neck were now wide open. There is no evidence of bleeding. No chips were remaining in the bladder. The scope was then removed. I then placed a 22 Trin[place] three-way coud? Yañez catheter into the bladder. It was manually irrigated with a Tete syringe to verify correct placement. 30 cc of fluid was placed in the balloon. It was taped to traction and CBI was started. It irrigated clear. The anesthet ic was then reversed. He was then transferred to a [facility] bed and wheeled to PACU in stable condition. Urinary Catheter Management Urinary Catheter Management 3-way Urethral: Cath placed during this visit: no
[2024-12-12] MEDS: SOLIFENACIN SUCCINATE 10 MG TABLET PO (14:34)
[2024-12-12] MEDS: SODIUM CHLORIDE IRRIG SOLUTION 3,000 ML 3000 ML IRR ×7 (14:57→22:49)
[2024-12-12] MEDS: 0.9 % SODIUM CHLORIDE 1,000 ML 80 ML IV (14:57)
[2024-12-12] MEDS: NAPROXEN 250 MG TABLET PO (21:03)
[2024-12-12] MEDS: ASCORBIC ACID 500 MG TABLET PO (21:03)
[2024-12-12] MEDS: TAMSULOSIN HCL 0.4 MG CAPSULE PO (21:03)
[2024-12-13] MEDS: SODIUM CHLORIDE IRRIG SOLUTION 3,000 ML 3000 ML IRR ×2 (01:23→05:19)
[2024-12-13 03:33] VITALS: BP 118/61; PULSE 64; TEMP 36.6; O2SAT 90
[2024-12-13] MEDS: PANTOPRAZOLE SODIUM 40 MG TABLET.DR PO (05:50)
[2024-12-13 07:00] VITALS: BP 124/67; PULSE 60; TEMP 36.8; O2SAT 92
[2024-12-13 07:32] VITALS: BP 124/67; PULSE 60; TEMP 36.8; O2SAT 92
[2024-12-13] MEDS: FUROSEMIDE 20 MG TABLET PO (09:54)
[2024-12-13] MEDS: SERTRALINE HCL 100 MG TABLET PO (09:54)
[2024-12-13] MEDS: ASCORBIC ACID 500 MG TABLET PO (09:55)
[2024-12-13] MEDS: MULTIVITAMIN TABLET 1 TAB PO (09:55)
[2024-12-13] MEDS: AMLODIPINE BESYLATE 5 MG TABLET PO (09:55)
[2024-12-13] MEDS: ACETAMINOPHEN 500 MG TABLET 1000 MG PO (09:55)
[2024-12-13] MEDS: ATORVASTATIN CALCIUM 40 MG TABLET PO (09:55)
[2024-12-13] MEDS: SOLIFENACIN SUCCINATE 10 MG TABLET PO (09:55)
[2024-12-13] MEDS: NAPROXEN 250 MG TABLET PO (09:55)
[2024-12-13] MEDS: DUTASTERIDE 0.5 MG CAPSULE PO (09:59)
== END 2024-12-13 10:34 | disposition home or self-care (01) ==
LOC: SURGOUT 13:58 → MS 14:46
PROVIDERS: PCP Internal Medicine; Visit Provider Urology
PROC: (CPT 52601; principal; 2024-12-12 12:20)
DX: N40.1 Benign prostatic hyperplasia with lower urinary tract symptoms (principal); F32.A Depression, unspecified; K21.9 Gastro-esophageal reflux disease without esophagitis; E78.5 Hyperlipidemia, unspecified; I10 Essential (primary) hypertension; Z79.01 Long term (current) use of anticoagulants; Z85.038 Personal history of other malignant neoplasm of large intestine; G62.9 Polyneuropathy, unspecified; H54.62 Unqualified visual loss, left eye, normal vision right eye; Z87.891 Personal history of nicotine dependence; I25.10 Atherosclerotic heart disease of native coronary artery without angina pectoris; Z96.619 Presence of unspecified artificial shoulder joint; G47.33 Obstructive sleep apnea (adult) (pediatric)
CPT/HCPCS: 52601; 36415; 88305; J1100; J2405; J2704; J3010